=== PATIENT | female | born 1940 | race African-American/Black ===

== ENCOUNTER 2019-09-07 22:56 | Inpatient (IN) | payer MEDICARE, SELFPAY ==
--- NOTE | ~2019-09-07 | NM_ITS ---
EXAMINATION: NM GI bleeding DATE: 09/12/2019 15:03 INDICATION: Blood in stools TECHNIQUE: A 4.4 mCi Tc 99m in vitro labeled red cells administered intravenously. Scintigraphic gene ges of the abdomen were obtained through 1 hour. FINDINGS: No pattern of abnormal activity is seen in the abdomen or pelvis to suggest gastrointestina l hemorrhage. IMPRESSION: 1. No scintigraphic evidence for active gastrointestinal bleeding. Reviewed, dictated and finalized at location A.
--- NOTE | ~2019-09-07 | CT_ITS ---
EXAMINATION: CT abdomen pelvis w con INDICATION: GI bleeding TECHNIQUE: Computed tomographic images of the abdomen and pelvis were obtained after the administrati on of 100 cc of Omnipaque 350 intravenous contrast. The dose-length product (DLP) was 469.32 mGy-cm. Automated exposure control and iterative reconstruction technique were employed. COMPARISON: 03/16/2018 FINDINGS: Minimal dependent atelectasis is present in the lung bases. The heart size is normal. Cysts of the liver measure up to 2.4 cm and the left hepatic lobe. Innumerable stones are present in the n ondistended gallbladder. The spleen and pancreas are normal. There are stable bilateral adrenal rachele s, likely adenomas given the lack of significant interval change. Cysts of the kidneys measure up to 4.5 cm on the right. There is calcified atherosclerosis of the aorta and many of the other arteries. No pathologically enlarged abdominal or pelvic lymph nodes are identified. There is no free intraperi toneal gas or evidence of bowel obstruction. There is extensive colonic diverticulosis. There is high attenuation material in the ascending colon near the hepatic flexure. There is severe lumbar spondyl osis. IMPRESSION: 1. High attenuation material in the ascending colon near the hepatic flexure, likely reflecting activ e contrast extravasation given history of lower GI bleeding. Emergent surgical consultation is recomm ended. These findings and recommendations were discussed with Dr. Celestino Sullivan MD in the Emerg ency Department at 0320 hours on 09/08/2019 by the [facility]. Reviewed, dictated and finalized at location A. IMPRESSION: 1. High attenuation material in the ascending colon near the hepatic flexure, l ikely reflecting active contrast extravasation given history of lower GI bleedi ng. Emergent surgical consultation is recommended. These findings and recommend ations were discussed with Dr. Celestino Sullivan MD in the Emergency Departme nt at 0320 hours on 09/08/2019 by the [facility].
[2019-09-07 22:57] VITALS: BP 193/87; PULSE 64; RESP 16; TEMP 36.9; O2SAT 96
[2019-09-07 23:29] VITALS: BP 168/84; PULSE 57
[2019-09-07 23:30] VITALS: BP 171/86; PULSE 60
[2019-09-07 23:32] VITALS: BP 165/91; PULSE 62
[2019-09-07 23:46] LABS: Basophils Percent Auto 0.6 % (0.2-1.2); Eosinophils Absolute Auto 0.2 K/mm3 (0-0.3); Eosinophils Percent Auto 2.6 % (0-4.4); Hematocrit 41.3 % (37.0-47.0); Hemoglobin 13.8 g/dL (12.0-15.0); Immature Granulocyte Absolute 0.02 K/mm3 (0.00-0.031); Immature Granulocyte Percent A 0.3 % (0-0.5); Lymphocytes Absolute Auto 1.79 K/mm3 (0.9-3.2); Lymphocytes Percent Auto 27.9 % (18.3-44.2); Mean Corpuscular HGB Conc 33.4 g/dl (32-36); Mean Corpuscular Hemoglobin 30.7 pg (26-34); Mean Corpuscular Volume 91.8 fl (80-100); Mean Platelet Volume 10.1 fl (7.4-10.4); Monocytes Absolute Auto 0.8 K/mm3 (0.1-0.6); Monocytes Percent Auto 11.7 % (2.6-8.5); Neutrophils Absolute Auto 3.7 K/mm3 (1.3-6.7); Neutrophils Percent Auto 56.9 % (45.5-73.1); Platelet Count Result 251 k/mm3 (150-375); Red Cell Distribution Width 14.4 % (11.5-14.5); White Blood Count 6.4 K/mm3 (4.5-10.0)
[2019-09-07 23:56] LABS: Partial Thromboplastin Time 27.2 SECONDS (22.3-36.8); Prothrombin Time 13.2 Seconds (11.1-14.7)
[2019-09-07 23:59] LABS: Alanine Aminotransferase 17 U/L (4-35); Albumin Level 4.3 g/dL (3.5-5.1); Alkaline Phosphatase 62 U/L (38-126); Aspartate Amino Transferase 25 U/L (14-36); Bilirubin,Total 0.4 mg/dL (0.2-1.3); Blood Urea Nitrogen 19 mg/dL (7-17); Calcium 9.5 mg/dL (8.4-10.2); Carbon Dioxide 25 mmol/L (22-30); Chloride 105 mmol/L (98-107); Estimated CRCL calculation 49 ml/min; Estimated Glomerular Filt Rate > 60; Glucose 108 mg/dL (65-105); Potassium 3.8 mmol/L (3.4-5.0); Sodium 137 mmol/L (137-145)
[2019-09-08] VITALS (9 sets, daily range): BP systolic 106–182; BP diastolic 61–97; PULSE 57–72; RESP 14–20; TEMP 36.1–36.8; O2SAT 96–99; BMI 27.8
--- NOTE | 2019-09-08 00:02 | ED.GIBLEED ---
HPI - GI Bleed General Chief complaint: GI Bleed Stated complaint: rectal bleeding Time Seen by Provider: 09/07/19 23:30 History of Present Illness HPI Narrative: 79 yo female w/ h/o htn presents to the ED c/o GI bleed. She reports 2 bright red stools this evening. The first time she pased some normal stool and noted red on the tissue in in the toilet bowl. The next time she felt as if she was going to have a bowel movement but only passed bright red blood. She denies abdominal pain. she does report mild dizziness. She takes 325 mg aspirin daily. Related Data Home Medications Medication Instructions Recorded Confirmed amlodipine 5 mg PO DAILY 09/08/19 09/08/19 aspirin 325 mg PO DAILY 09/08/19 09/08/19 diclofenac sodium 75 mg PO BID 09/08/19 09/08/19 dicyclomine 10 mg PO TID PRN 09/08/19 09/08/19 propranolol 160 mg PO DAILY 09/08/19 09/08/19 Allergies Allergy/AdvReac Type Severity Reaction Status Date / Time codeine Allergy Unknown Unknown Verified 09/07/19 23:25 MEPERIDINE HCL Allergy Unknown Unknown Uncoded 09/07/19 23:25 SHELLFISH Allergy Unknown Unknown Uncoded 09/07/19 23:25 Review of Systems Review of Systems: All systems reviewed & are unremarkable except as noted in HPI and below Constitutional: Constitutional: Denies fever(s) and Denies weakness Cardiovascular: Cardiovascular: Denies chest pain Respiratory: Respiratory: Denies dyspnea Gastrointestinal: Gastrointestinal: Denies abdominal pain and Denies nausea Genitourinary: Genitourinary: Denies hematuria and Denies dysuria Neurologic: Reports dizziness and Denies weakness [facility] Past Medical History Medical History (Updated 09/08/19 @ 03:39 by Celestino Sullivan MD) HTN (hypertension) Social History Social History (Updated 09/08/19 @ 03:36 by Celestino Sullivan MD) Smoking packs per day: 0 Smoking cigarettes per day: 0.0 Years smoked: 50 Smoking pack-years: 0.00 Smoking status: Former smoker Tobacco type: cigarettes Second hand tobacco smoke exposure: Yes Alcohol intake: current Drinks per week: 15 Substance use: never Substance use type: does not use Gender identity (if verbalized by the patient): Female Spiritual care concerns: No Exam Const: General: healthy appearing, no acute distress and alert Orientation/consciousness: patient oriented x3 Limitations: no limitations HENMT: Head: normal to inspection Resp: Effort & Inspection: normal respiratory effort Auscultation: clear to auscultation bilaterally Cardio: Rate: regular rate Rhythm: regular rhythm GI: GI Palp: Yes Soft to palpation and No Tenderness to palpation present (GI) Skin: General skin exam: normal color Neuro: General: patient oriented x3, moves all extremities and CN's II-XI intact bilaterally Speech: normal speech Extrem: General: normal to inspection Course Vital Signs Vital signs: Vital Signs Temperature 36.9 C 09/07/19 22:57 Pulse Rate 64 09/07/19 22:57 Respiratory Rate 16 09/07/19 22:57 Blood Pressure 193/87 H 09/07/19 22:57 Pulse Oximetry 96 09/07/19 22:57 Temperature 36.9 C 09/07/19 22:57 Pulse Rate 61 09/08/19 03:08 Respiratory Rate 20 09/08/19 03:08 Blood Pressure 147/79 H 09/08/19 03:08 Pulse Oximetry 98 09/08/19 03:08 MDM - GI Bleed MDM Narrative Medical decision making narrative: Labs stable. Lower GI bleed of uncertain origin. Discussed patient with Dr. Camacho. Recommends admission to the hospitalist. He will consult. Medical Records Attestation: I reviewed the patient's medical records. Lab Data Attestation: I reviewed the patient's lab results. Result diagrams: 09/07/19 23:27 09/07/19 23:27 Labs: Lab Results 09/07/19 09/07/19 09/07/19 Range/Units 23:27 23:27 23:27 WBC 6.4 (4.5-10.0) K/mm3 RBC 4.50 (4.2-5.4) M/mm3 Hgb 13.8 (12.0-15.0) g/dL Hct 41.3 (37.0-47.0) % MCV 91.8 (80-100) fl MCH 30.7 (26
--- NOTE | 2019-09-08 03:15 | ADMGEN ---
This patient, Caro Garcia, was admitted to Medical Room 342-01. Patient/family oriented to hospital policies and general routines including ID bracelet, bed and alarms, visiting hours, pain management, procedures, bathroom and other care routines, personal items, smoking policy, room service/diet, and visiting hours. Valuables list has been completed. Information on how to activate the Rapid Response Team has been discussed. Patient/Family are encouraged to report perceived risks to care and to ask questions if they do not understand what they are told or what they should do.
[2019-09-08] MEDS: LACTATED RINGERS 1,000 ML 75 ML IV CONT ×2 (03:18→16:27)
--- NOTE | 2019-09-08 09:19 | PM.IMHP ---
H&P: HPI History of Present Illness Chief complaint: Lower GI bleed <Domenica Hardin PA-C - Last Filed: 09/08/19 10:45> Narrative: Date of admission: 09/08/2019 Date of service: 09/08/2019 Caro Garcia is a 79 year old female with a past medical history of hypertension and hemorrhoids who presented to the emergency department on 09/08/2019 with complaints bright red bleeding per rectum. She had been feeling in her usual state of until yesterday evening when she ate some ice cream cake at a birthday alliance party which she states did not agree with her. She then had some crampy abdominal discomfort, went to the bathroom and discovered bright red blood on the toilet paper and in the toilet bowl. At that time she passed a soft formed stool. Shortly thereafter she had a 2nd episode of bright red bleeding, which prompted her to seek emergency care. She has had 3 additional episodes of bleeding per rectum since presentation. Her past two bowel movements, she notes she passed several small, soft, balls of stool. She does take aspirin daily. She denies any associated abdominal pain, nausea, vomiting, fever or chills. She denies any recent weight loss, in fact believes that she might have gained some weight recently. She has never had a colonoscopy. She does have a history of hemorrhoids which do not typically bother her. She occasionally uses preparation H. She reports she has not been straining recently. She also denies recent constipation. Approximately 3 months ago, she began having some issues with diarrhea and her PCP started her on dicyclomine. She now takes this only occasionally if she develops diarrhea, which is infrequent. <Domenica Hardin PA-C - Last Filed: 09/08/19 10:45> Review of Systems Review of Systems: Narrative: A 12 point review of systems was reviewed with pertinent positives and negatives as above. She does report that she has been somewhat weak lately, especially in her legs, which she believes is due to decreased activity from being stuck at home. She denies dizziness or lightheadedness. She does endorse some dyspnea on exertion. She denies any chest pain. She denies visual changes. She denies sore throat. She endorses chronic sinus congestion and occasional dry cough. She denies numbness or tingling. She denies easy bruising or bleeding. She denies anxiety or depression. She reports that she is occasionally forgetful, but denies overt memory issues or confusion. <Domenica Hardin PA-C - Last Filed: 09/08/19 10:45> FORMERLY [facility], [facility]–1983 Past Medical History Medical History: Medical History (Updated 09/08/19 @ 13:22 by Pedro Gee MD) Abnormal CT scan, colon (~09/08/19) Acute blood loss anemia Hemorrhoids History of TIA (transient ischemic attack) HTN (hypertension) (Unknown) Spinal stenosis <Domenica Hardin PA-C - Last Filed: 09/08/19 10:45> Surgical History Surgical History: Surgical History (Updated 09/08/19 @ 09:42 by Domenica Hardin PA-C) History of cataract surgery <Domenica Hardin PA-C - Last Filed: 09/08/19 10:45> Family History Family History: Family History (Updated 09/08/19 @ 09:43 by Domenica Hardin PA-C) Mother Acute myocardial infarction Cerebrovascular accident Hypertension Father Cerebrovascular accident Hypertension Sibling Cerebrovascular accident Sibling Colon cancer Breast cancer Sibling Diabetes mellitus Prostate carcinoma Sibling Renal cancer <Domenica Hardin PA-C - Last Filed: 09/08/19 10:45> Social History Social History: Social History (Updated 09/08/19 @ 09:46 by Domenica Hardin PA-C) Social History: Ms. Garcia lives at home with her daughter. 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 She has 1 daughter and 2 sons. She designates her daughter, Susi, as her POA. She would like to be a DNR. Smoking packs per day: 0 Smoking cigarettes per day: 0.0 Years smoked: 50 Smokin
[2019-09-08 09:47] LABS: Hematocrit 30.5 % (37.0-47.0); Hemoglobin 10.1 g/dL (12.0-15.0); Mean Corpuscular HGB Conc 33.1 g/dl (32-36); Mean Corpuscular Hemoglobin 30.3 pg (26-34); Mean Corpuscular Volume 91.6 fl (80-100); Mean Platelet Volume 9.6 fl (7.4-10.4); Platelet Count Result 205 k/mm3 (150-375); Red Blood Count 3.33 M/mm3 (4.2-5.4); Red Cell Distribution Width 14.6 % (11.5-14.5); White Blood Count 5.7 K/mm3 (4.5-10.0)
[2019-09-08 10:01] LABS: Alanine Aminotransferase 14 U/L (4-35); Albumin Level 3.3 g/dL (3.5-5.1); Alkaline Phosphatase 52 U/L (38-126); Aspartate Amino Transferase 18 U/L (14-36); Bilirubin,Total 0.4 mg/dL (0.2-1.3); Blood Urea Nitrogen 15 mg/dL (7-17); Calcium 8.5 mg/dL (8.4-10.2); Carbon Dioxide 24 mmol/L (22-30); Chloride 108 mmol/L (98-107); Estimated CRCL calculation 49 ml/min; Estimated Glomerular Filt Rate > 60; Glucose 124 mg/dL (65-105); Potassium 3.9 mmol/L (3.4-5.0); Sodium 137 mmol/L (137-145)
[2019-09-08] MEDS: AMLODIPINE BESYLATE 5 MG TABLET PO (10:36)
[2019-09-08] MEDS: PANTOPRAZOLE SODIUM IV 40 MG VIAL IV PUSH (10:37)
--- NOTE | 2019-09-08 10:44 | PM.CNGS ---
Assessment and Plan Assessment and plan (1) Acute lower GI bleeding: Onset Date: ~09/07/19 Code(s): K92.2 - Gastrointestinal hemorrhage, unspecified Status: Acute Assessment and Plan: GI consultation has already been obtained. If possible bowel prep to be followed by a colonoscopy in an attempt to identify site of bleeding. If there are signs of continuing active bleeding I would recommend considering a nuclear medicine red cell tag scan to help identify which side of the colon this is on but right now it appears to be on the right side. also bleeding seems to have slowed down as the patient has not had a bowel movement since 10:00 a.m. this morning. Will discuss with patient that if she comes to open surgery and requires a right hemicolectomy it may be fuentes to go ahead electively remove the gallbladder at the same time in order to stay out of trouble postoperatively with a perioperative episode of cholelithiasis / cholecystitis. ( non inflamed gallbladder with stones in it seen on CT). (2) Abnormal CT scan, colon: Onset Date: ~09/08/19 Code(s): R93.3 - Abnormal findings on diagnostic imaging of other parts of digestive tract Status: Acute Assessment and Plan: see report will await GI evaluation and possible colonoscopy. (3) Acute blood loss anemia: Code(s): D62 - Acute posthemorrhagic anemia Status: Acute Assessment and Plan: Hemoglobin from 13 down to 10. Continue to monitor with Q 6 hours H&Hs. (4) HTN (hypertension): Onset Date: Unknown Code(s): I10 - Essential (primary) hypertension Status: Acute Assessment and Plan: Rx as per primary service. History of Present Illness Consult details Consult date: 09/08/19 Reason for consult: other (Lower GI bleed) Requesting physician: Domenica Hardin PA-C Narrative: H&P: HPI History of Present Illness Chief complaint: Lower GI bleed Narrative: Date of admission: 09/08/2019 Date of service: 09/08/2019 Caro Garcia is a 79 year old female with a past medical history of hypertension and hemorrhoids who presented to the emergency department in the very draw furnace tender of 09/08/2019 with complaints of bright red bleeding per rectum. She had been feeling ok and in her usual state health until yesterday evening when she ate some ice cream cake at a birthday green party which she states did not agree with her. She then had some crampy abdominal discomfort, and went to the bathroom and discovered bright red blood on the toilet paper and in the toilet bowl after her BM. At that time she passed a soft formed stool. Shortly thereafter she had a 2nd episode of bright red bleeding, which prompted her to seek emergency care. She has had 3 additional episodes of bleeding per rectum since being admited to the floor. Her past two bowel movements, she notes that she passed several small, soft, balls of stool along with the blood. She does take aspirin daily and Diflocnac. She denies any associated abdominal pain, nausea, vomiting, fever or chills. She denies any recent weight loss, in fact believes that she might have gained some weight recently. She has never had a colonoscopy. She does have a history of hemorrhoids which do not typically bother her. She occasionally uses preparation H. She reports she has not been straining recently. She also denies recent constipation. Approximately 3 months ago, she began having some issues with diarrhea and her PCP started her on dicyclomine. She now takes this only occasionally if she develops diarrhea, which is infrequent. Her H&H was stable at presentation. Review of Systems Constitutional: Constitutional: Reports as per HPI and Denies headache(s) Eyes: Eyes: Denies loss of vision and Denies eye pain ENT: Reports Normal hearing present, Denies change in voice, Denies dizziness and Denies headache(s) Cardiovascular: Cardiovascular: Denies ches
--- NOTE | 2019-09-08 12:51 | WPDGICN ---
Assessment and Plan Assessment and plan (1) Acute lower GI bleeding: Code(s): K92.2 - Gastrointestinal hemorrhage, unspecified Status: Acute Assessment and Plan: admitted to the hospital, continue to trend hb differential diagnosis include diverticular bleeding, ischemic colitis (will get lactic acid- also abnormal CT scan with accumulation of contrast in ascending colon- surgery to assess)- abdominal exam is benign now. (2) Acute blood loss anemia: Code(s): D62 - Acute posthemorrhagic anemia Status: Acute Assessment and Plan: noted drop in hb, continue to monitor eventually will need colonoscopy (3) HTN (hypertension): Code(s): I10 - Essential (primary) hypertension Status: Acute (4) Abnormal CT scan, colon: Code(s): R93.3 - Abnormal findings on diagnostic imaging of other parts of digestive tract Status: Acute GI Consult Note Consult date/time: 09/08/19 12:51 Reason for consult: blood in stools HPI: Caro Garcia is a 79 year old female with history of hypertension, hemorrhoids and new onset of blood in stool after having a bowel movement last night after dinner, then had another episode with large amount and cramping in lower abdomen therefore she came to ER and was admitted to the hospital. Had another 3 episodes since admission. Few days ago had nausea without vomiting, no fever or chills, no sick contacts. CT scan showed high attenuation material in the ascending colon near the hepatic flexure and surgery team will see. She denies any abdominal pain in fact she is quite comfortable and hungry. Hb was 13 and repeat 10. Never had colonoscopy. Normal Co2 (no metabolic acidosis), normal WBC and afebrile. Denies abdominal surgeries and overall healthy. Review of Systems Constitutional: Constitutional: Denies headache(s) and Denies weakness Eyes: Eyes: Denies blurry vision ENT: Reports Normal hearing present, Denies headache(s) and Denies neck pain Cardiovascular: Cardiovascular: Denies chest pain and Denies dyspnea Respiratory: Respiratory: Denies dyspnea Gastrointestinal: Gastrointestinal: Reports no additional gastrointestinal complaints Genitourinary: Genitourinary: Denies dysuria Musculoskeletal: Musculoskeletal: Denies neck pain Integumentary/Breasts: Skin/Breast: Denies dry skin Neurologic: Reports Normal hearing present, Denies headache(s) and Denies weakness Psychiatric: Psychiatric: Denies anxiety Endocrine: Endocrine: Denies change in body appearance Hematologic/Lymphatic: Hematologic/Lymphatic: Denies easy bleeding Allergic/Immunologic: Allergic/Immunologic: Denies urticaria PMFSH Past Medical History Medical History (Updated 09/08/19 @ 13:00 by Michi Nobles MD) Abnormal CT scan, colon Acute blood loss anemia Hemorrhoids History of TIA (transient ischemic attack) HTN (hypertension) Spinal stenosis Surgical History Surgical History (Updated 09/08/19 @ 09:42 by Domenica Hardin PA-C) History of cataract surgery Family History Family History (Updated 09/08/19 @ 09:43 by Domenica Hardin PA-C) Mother Acute myocardial infarction Cerebrovascular accident Hypertension Father Cerebrovascular accident Hypertension Sibling Cerebrovascular accident Sibling Colon cancer Breast cancer Sibling Diabetes mellitus Prostate carcinoma Sibling Renal cancer Social History Social History (Updated 09/08/19 @ 09:46 by Domenica aHrdin PA-C) Social History: Ms. Garcia lives at home with her daughter. 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 She has 1 daughter and 2 sons. She designates her daughter, Susi, as her POA. She would like to be a DNR. Smoking packs per day: 0 Smoking cigarettes per day: 0.0 Years smoked: 50 Smoking pack-years: 0.00 Smoking status: Former smoker Tobacco type: cigarettes Second hand tobacco smoke exposure: Yes Alcohol intake: current
--- NOTE | 2019-09-08 15:17 | PC.NURSE ---
Patient with 100mls mixed urine with dark red blood. Continues alert and oriented. To continue to monitor patient.
[2019-09-08 17:12] LABS: Hematocrit 31.3 % (37.0-47.0); Hemoglobin 10.2 g/dL (12.0-15.0)
[2019-09-09] VITALS (9 sets, daily range): BP systolic 113–167; BP diastolic 56–80; PULSE 56–89; RESP 12–18; TEMP 36.4–36.8; O2SAT 97–100
[2019-09-09] MEDS: LACTATED RINGERS 1,000 ML 75 ML IV CONT ×2 (05:06→18:28)
[2019-09-09] MEDS: AMLODIPINE BESYLATE 5 MG TABLET PO (09:14)
[2019-09-09] MEDS: PANTOPRAZOLE SODIUM IV 40 MG VIAL IV PUSH (09:14)
--- NOTE | 2019-09-09 11:32 | WPDGIPROGNO ---
Progress Note: A&P Assessment and Plan (1) Acute lower GI bleeding: Onset Date: ~09/07/19 Code(s): K92.2 - Gastrointestinal hemorrhage, unspecified Status: Acute Assessment and Plan: will proceed with colonoscopy tomorrow differential diagnosis diverticular bleed, colitis, even malignancy (never had a colonoscopy) will order bowel prep and npo after midnight (2) Acute blood loss anemia: Code(s): D62 - Acute posthemorrhagic anemia Status: Acute Assessment and Plan: stable at 10 now (3) Abnormal CT scan, colon: Onset Date: ~09/08/19 Code(s): R93.3 - Abnormal findings on diagnostic imaging of other parts of digestive tract Status: Acute Subjective Date/time seen: 09/09/19 11:32 Interval history: had two more episodes of rectal bleeding today with low abdominal cramping just before defecation. Now she feels ok Review of Systems Review of Systems: All systems reviewed & are unremarkable except as noted in HPI and below Exam Const: General: comfortable and no acute distress HENMT: General nose exam: Normal nares present Eyes: General: appearance normal, both eyes and all related structures Neck: Neck: no JVD Resp: Auscultation: clear to auscultation bilaterally Cardio: Rate: regular rate Rhythm: regular rhythm GI: Inspection: non-distended GI Palp: Yes Soft to palpation, No Tenderness to palpation present (GI) and No Guarding due to palpation present (GI) Auscultation: normal bowel sounds Skin: General skin exam: normal color Neuro: General: gait normal Speech: normal speech Extrem: General: normal to inspection Psych: Mental Status: mental status grossly normal Objective Data Vital Signs Vital Signs: Vital Signs - 24 hr 09/08/19 14:00 09/08/19 19:43 09/09/19 06:00 Temperature 97.1 F L 98.2 F 98.2 F Pulse Rate 64 61 67 Respiratory Rate 18 14 12 Blood Pressure 106/72 127/61 113/80 Pulse Oximetry 98 96 98 09/09/19 09:13 Temperature Pulse Rate 89 Respiratory Rate Blood Pressure Pulse Oximetry Intake/Output Intake/Output: Intake & Output 09/06/19 09/07/19 09/08/19 09/09/19 23:59 23:59 23:59 23:59 Intake Total 1350 1660 Output Total 350 800 Balance 1000 860 Meds/Results Medications: Active Medications Generic Name Dose Route Start Last Admin Trade Name Freq PRN Reason Stop Dose Admin Acetaminophen 650 mg 09/08/19 10:00 Tylenol Tablet PO Q4H PRN Mild pain 1-3, Fever Amlodipine Besylate 5 mg 09/08/19 09:00 09/09/19 09:14 Norvasc PO 5 mg DAILY SALINA Administration Lactated Ringer's 1,000 mls @ 75 mls/hr 09/08/19 02:25 09/09/19 05:06 Lr - Lactated Ringers Iv IV CONT 75 mls/hr .[id number] SALINA Administration Pantoprazole Sodium 40 mg 09/08/19 09:00 09/09/19 09:14 Protonix Iv IV PUSH 40 mg QAM SALINA Administration Propranolol HCl 160 mg 09/08/19 09:00 09/09/19 09:13 Inderal La PO 10/09/19 09:01 160 mg DAILY SALINA Administration Radiology Results: ITS Impressions Abdomen/Pelvis CT 09/08/19 08:41 IMPRESSION: 1. High attenuation material in the ascending colon near the hepatic flexure, likely reflecting active contrast extravasation given history of lower GI bleeding. Emergent surgical consultation is recommended. These findings and recommendations were discussed with Dr. Celestino Sullivan MD in the Emergency Department at 0320 hours on 09/08/2019 by the [facility] Radiologist. Labs Labs: Laboratory Results - last 24 hr 09/08/19 09/08/19 13:06 17:02 Hgb 10.2 L Hct 31.3 L Lactic Acid 1.0
--- NOTE | 2019-09-09 11:36 | PC.NURSE ---
0735 patient with 50 mls of red urine/stool mixture 50 ml.
--- NOTE | 2019-09-09 13:00 | PM.IMPN ---
Progress Note: A&P Assessment and Plan (1) Acute lower GI bleeding: Onset Date: ~09/07/19 <Domenica Hardin LOREN-C - Last Filed: 09/09/19 13:21> Code(s): K92.2 - Gastrointestinal hemorrhage, unspecified <Domenica Hradin PA-C - Last Filed: 09/09/19 13:21> Status: Acute <LOREN Tracy-C - Last Filed: 09/09/19 13:21> Assessment and Plan: Patient notes 3 episodes of rectal bleeding today, passing a small amount of darker blood with clots Her CT abdomen and pelvis revealed high attenuation material in the ascending colon near the hepatic flexure, likely reflecting active contrast extravasation. She denies abdominal pain or rectal pain. She is tolerating full liquid diet. Gastroenterology and General surgery have been consulted and their input is greatly appreciated She will undergo colonoscopy tomorrow. Continue gentle IV fluids Continue full liquid diet. She will be NPO after midnight Measure all voids to monitor blood loss. <Domenica Torreslaisha LOREN-C - Last Filed: 09/09/19 13:21> (2) Anemia: Code(s): D64.9 - Anemia, unspecified <Domenica Torreslaisha PA-C - Last Filed: 09/09/19 13:21> Status: Acute <Domenica Hardin LOREN-C - Last Filed: 09/09/19 13:21> Assessment and Plan: Normocytic. At presentation H&H was stable. Hgb dropped from 13.1 to 10.1 yesterday secondary to acute blood loss. H&H remained stable yesterday. Labs are delayed today and H&H is not yet for today. Patient is asymptomatic and vitals are stable Continue to monitor H&H Q6H and transfuse as needed <Domenica VillegasAlexia Brianlaisha LOREN-C - Last Filed: 09/09/19 13:21> (3) HTN (hypertension): Onset Date: Unknown <Domenica Torreslaisha PA-C - Last Filed: 09/09/19 13:21> Code(s): I10 - Essential (primary) hypertension <Domenica Torreslaisha PA-C - Last Filed: 09/09/19 13:21> Status: Acute <Domenica Hardin PA-C - Last Filed: 09/09/19 13:21> Assessment and Plan: Blood pressures were elevated at presentation but have improved today.. Blood pressure this morning was 113/80. Continue amlodipine and propranolol Continue to monitor blood pressures closely <Domenica Hardin PA-C - Last Filed: 09/09/19 13:21> Subjective Date/time seen: 09/09/19 13:00 <Domenica Hardin PA-C - Last Filed: 09/09/19 13:21> Interval history: Date of service: 09/09/2019 She reports she is feeling well today. She notes that she had 3 bloody stools this morning. She states that the blood is now somewhat dark and she is noting small clots. She says she is passing a small amount of blood. She denies any abdominal pain. She does note that she has abdominal cramping just before she is about to have a bowel movement. She denies nausea or vomiting. She denies weakness, fatigue, shortness of breath, dizziness, lightheadedness, or palpitations. She denies chest pain. She is tolerating her liquid diet well. She reports being somewhat nervous for her colonoscopy tomorrow. She slept well last night. She has no additional concerns. <Domenica Hardin PA-C - Last Filed: 09/09/19 13:21> Review of Systems Review of Systems: Narrative: A 12 point review of systems was reviewed with pertinent positives and negatives as per HPI. <Domenica Hardin PA-C - Last Filed: 09/09/19 13:21> Exam Narrative: Exam Narrative: Ms. Garcia is examined alone today. She is a well-nourished 79-year-old female who appears slightly younger than stated age. She is resting in bed comfortably and is in no acute respiratory distress. HR 67, BP 113/80, RR 12, T 98.2?, 98% on room air Neuro: awake, alert and oriented x4, speech clear, no focal neuro deficits noted HEENMT: normocephalic, atraumatic, EOMI, PERRL, sclerae anicteric, moist oral mucosa, normal oropharynx, tongue midline Neck: supple, no lymphadenopathy Respiratory: clear to auscultation bilaterally
[2019-09-09] MEDS: PEG (High)/E-LYTE SOLN 4,000 ML BTL 4000 ML PO (16:28)
[2019-09-09] MEDS: BISACODYL 5 MG TABLET EC 20 MG PO (16:28)
[2019-09-09 16:36] LABS: Hematocrit 25.5 % (37.0-47.0); Hemoglobin 8.3 g/dL (12.0-15.0)
[2019-09-09 16:37] LABS: Basophils Percent Auto 0.6 % (0.2-1.2); Eosinophils Absolute Auto 0.2 K/mm3 (0-0.3); Eosinophils Percent Auto 2.4 % (0-4.4); Hematocrit 25.8 % (37.0-47.0); Hemoglobin 8.3 g/dL (12.0-15.0); Immature Granulocyte Absolute 0.04 K/mm3 (0.00-0.031); Immature Granulocyte Percent A 0.6 % (0-0.5); Lymphocytes Absolute Auto 1.88 K/mm3 (0.9-3.2); Lymphocytes Percent Auto 26.6 % (18.3-44.2); Mean Corpuscular HGB Conc 32.2 g/dl (32-36); Mean Corpuscular Hemoglobin 30.3 pg (26-34); Mean Corpuscular Volume 94.2 fl (80-100); Mean Platelet Volume 10.3 fl (7.4-10.4); Monocytes Absolute Auto 0.6 K/mm3 (0.1-0.6); Monocytes Percent Auto 8.3 % (2.6-8.5); Neutrophils Absolute Auto 4.4 K/mm3 (1.3-6.7); Neutrophils Percent Auto 61.5 % (45.5-73.1); Platelet Count Result 204 k/mm3 (150-375); Red Blood Count 2.74 M/mm3 (4.2-5.4); Red Cell Distribution Width 14.6 % (11.5-14.5); White Blood Count 7.1 K/mm3 (4.5-10.0)
--- NOTE | 2019-09-09 16:38 | PC.NURSE ---
Emptied 50 mls dark red stool/urine mixture into toilet.
[2019-09-09 16:49] LABS: Alanine Aminotransferase 13 U/L (4-35); Albumin Level 3.4 g/dL (3.5-5.1); Alkaline Phosphatase 47 U/L (38-126); Aspartate Amino Transferase 20 U/L (14-36); Bilirubin,Total 0.3 mg/dL (0.2-1.3); Blood Urea Nitrogen 12 mg/dL (7-17); Calcium 8.2 mg/dL (8.4-10.2); Carbon Dioxide 27 mmol/L (22-30); Chloride 105 mmol/L (98-107); Estimated CRCL calculation 57 ml/min; Estimated Glomerular Filt Rate > 60; Glucose 89 mg/dL (65-105); Potassium 3.4 mmol/L (3.4-5.0); Sodium 136 mmol/L (137-145)
--- NOTE | 2019-09-09 18:22 | ECG_ITS ---
Measurements Intervals [place] Rate: 62 P: 25 NV: 146 QRS: 45 QRSD: 103 T: 93 QT: 355 QTc: 361 Interpretive Statements SINUS RHYTHM NONSPECIFIC ST & T-WAVE ABNORMALITY- DIFFUSE LEADS BASELINE ARTIFACT- I, III, AVR, AVL, AVF, V3-V4 BORDERLINE ECG Electronically Signed On 09-10-2019 7:03:47 CDT by Cruz Dahl D.O.
--- NOTE | 2019-09-09 19:30 | PC.NURSE ---
1818 upon arrival to have patient to have colonoscopy consent signed patient voiced that she has mid chest tightening after racing to the bathroom and back to bed. Vital signs, blood pressure 167/68, pulse 64, respirations 14, temperature 97.9 oxygenation saturation 100 percent on room air. Notified Dr. Zapata of all as stated above. He voiced to get a stat EKG and he will come see the patient. At 182 patient voiced that the chest tightening is easing up. 1832 patient voiced the mid chest tightening is gone. Upon Dr. Salazar arrival to the unit I handed him the EKG paperwork.
--- NOTE | 2019-09-09 20:20 | PC.NURSE ---
Report called to Silvia from IMU. Will gather patient belongings and transfer pt to Rm 200.
[2019-09-09 20:33] LABS: Troponin I 0.047 ng/mL (0.000-0.034)
--- NOTE | 2019-09-09 20:42 | PC.NURSE ---
This patient, Caro Garcia, was transferred to [IMU 200 ] on 09/09/19 at 2037. Personal belongings sent with patient. Belongings list checked and signed with receiving [[facility] ]. Report given to [ Silvia]. Appropriate documentation sent with patient.
--- NOTE | 2019-09-09 21:24 | PC.NURSE ---
Transferred from 342 to 200 09/09/2019 at 2030. Report recieved from Yoko
--- NOTE | 2019-09-09 21:57 | PM.PNGS ---
Progress Note: A&P Assessment and Plan (1) Acute lower GI bleeding: Onset Date: ~09/07/19 Code(s): K92.2 - Gastrointestinal hemorrhage, unspecified Status: Acute Assessment and Plan: appears this patient has stopped bleeding. H&H is stable for the last 12-16 hours Agree with possible colonoscopy tomorrow. Hopefully she will tolerate her bowel prep. Possibilities include diverticular bleed versus tumor or polyp. (2) Anemia: Onset Date: Unknown Code(s): D64.9 - Anemia, unspecified Status: Acute Assessment and Plan: Continue to monitor. Have blood type and cross in case patient goes below 7.0. (3) Abnormal CT scan, colon: Onset Date: ~09/08/19 Code(s): R93.3 - Abnormal findings on diagnostic imaging of other parts of digestive tract Status: Acute Assessment and Plan: Seen on admission Awake colonoscopy results. Additional Plan Continue daily CBC in follow-up of possible colon bleed. Await results of colonoscopy tomorrow. Consider early transfusion and nuclear medicine red cells tag scan if patient starts to bleed rapidly. Subjective Subjective Date/Time Seen: 09/09/19 21:57 Interval history: Pt reports she is feeling well today. She notes that she had 3 (dark) bloody stools this morning. She states that she is noting small clots. She says she is passing a small amount of blood. She denies any abdominal pain. She does note that she has abdominal cramping just before she is about to have a bowel movement. She denies nausea or vomiting. She denies weakness, fatigue, shortness of breath, dizziness, lightheadedness, or palpitations. She denies chest pain. She is tolerating her liquid diet well. She reports being somewhat nervous for her colonoscopy tomorrow. She slept well last night. She has no additional concerns. Review of Systems Constitutional: Constitutional: Reports no additional constitutional complaints ENT: Reports other (Mucous Membranes moist.) Cardiovascular: Cardiovascular: Denies dyspnea Respiratory: Respiratory: Denies pain on inspiration and Denies dyspnea Musculoskeletal: Musculoskeletal: Reports other (No calf swelling or edema) Integumentary/Breasts: Skin/Breast: Reports system reviewed and no additional complaints, except as docu Exam Const: General: cooperative, no acute distress, alert and awake Orientation/consciousness: patient oriented x3 HENMT: Mouth: Yes moist mucous membranes Neck: Neck: normal visual inspection Chest: Chest palpation & inspection: normal inspection of the chest Resp: Effort & Inspection: normal respiratory effort Auscultation: clear to auscultation bilaterally Cardio: Jugular venous distension: no JVD Rate: regular rate Rhythm: regular rhythm GI: GI Palp: No abdominal tenderness Percussion: Yes normal to percussion Auscultation: normal bowel sounds Rectal Exam: deferred Neuro: General: patient oriented x3 and moves all extremities Speech: normal speech Extrem: General: normal exam except as noted Psych: Mental Status: mental status grossly normal Speech and movement: Normal speech and movement present Affect: normal affect Thought content: Yes Normal thought content present Objective Data Vital Signs Vital Signs: Vital Signs - 24 hr 09/09/19 06:00 09/09/19 08:00 09/09/19 09:13 Temperature 36.8 C Pulse Rate 67 89 89 Respiratory Rate 12 12 Blood Pressure 113/80 Pulse Oximetry 98 98 09/09/19 14:00 09/09/19 18:24 09/09/19 20:05 Temperature 36.4 C 36.6 C 36.6 C Pulse Rate 56 L 64 65 Respiratory Rate 14 14 16 Blood Pressure 120/56 L 167/68 H 135/66 Pulse Oximetry 97 100 99 09/09/19 20:30 Temperature 36.8 C Pulse Rate 64 Respiratory Rate 18 Blood Pressure 113/66 Pulse Oximetry 98 Intake/Output Intake/Output: Intake & Output 09/06/19 09/07/19 09/08/19 09/09/19 23:59 23:59 23:59 23:59 Intake Total 1350 3510 Output Total 3
[2019-09-10] VITALS (27 sets, daily range): BP systolic 100–141; BP diastolic 51–85; PULSE 54–89; RESP 16–26; TEMP 35.9–36.7; O2SAT 92–100
[2019-09-10 03:17] LABS: Troponin I 0.035 ng/mL (0.000-0.034)
[2019-09-10 05:00] LABS: Basophils Percent Auto 0.2 % (0.2-1.2); Eosinophils Absolute Auto 0.2 K/mm3 (0-0.3); Eosinophils Percent Auto 3.5 % (0-4.4); Immature Granulocyte Absolute 0.03 K/mm3 (0.00-0.031); Immature Granulocyte Percent A 0.5 % (0-0.5); Lymphocytes Absolute Auto 1.47 K/mm3 (0.9-3.2); Lymphocytes Percent Auto 25.7 % (18.3-44.2); Mean Corpuscular HGB Conc 33.2 g/dl (32-36); Mean Corpuscular Hemoglobin 30.4 pg (26-34); Mean Corpuscular Volume 91.6 fl (80-100); Mean Platelet Volume 9.6 fl (7.4-10.4); Monocytes Absolute Auto 0.5 K/mm3 (0.1-0.6); Monocytes Percent Auto 9.1 % (2.6-8.5); Neutrophils Absolute Auto 3.5 K/mm3 (1.3-6.7); Platelet Count Result 163 k/mm3 (150-375); Red Blood Count 2.14 M/mm3 (4.2-5.4); Red Cell Distribution Width 14.4 % (11.5-14.5); White Blood Count 5.7 K/mm3 (4.5-10.0)
[2019-09-10 05:19] LABS: Hemoglobin 6.5 g/dL (12.0-15.0)
[2019-09-10 05:20] LABS: Hematocrit 19.6 % (37.0-47.0)
[2019-09-10] MEDS: MAGNESIUM CITRATE 300 ML BTL PO (05:24)
[2019-09-10 05:41] LABS: Alanine Aminotransferase 11 U/L (4-35); Albumin Level 2.7 g/dL (3.5-5.1); Alkaline Phosphatase 38 U/L (38-126); Aspartate Amino Transferase 17 U/L (14-36); Bilirubin,Total 0.1 mg/dL (0.2-1.3); Blood Urea Nitrogen 6 mg/dL (7-17); Calcium 7.6 mg/dL (8.4-10.2); Carbon Dioxide 28 mmol/L (22-30); Chloride 105 mmol/L (98-107); Estimated CRCL calculation 68 ml/min; Estimated Glomerular Filt Rate > 60; Glucose 118 mg/dL (65-105); Potassium 2.9 mmol/L (3.4-5.0); Sodium 135 mmol/L (137-145)
[2019-09-10] MEDS: PANTOPRAZOLE SODIUM IV 40 MG VIAL IV PUSH (07:49)
[2019-09-10] MEDS: AMLODIPINE BESYLATE 5 MG TABLET PO (07:49)
--- NOTE | 2019-09-10 08:00 | ECG_ITS ---
Measurements Intervals [place] Rate: 66 P: 42 MI: 149 QRS: 55 QRSD: 112 T: 122 QT: 391 QTc: 410 Interpretive Statements SINUS RHYTHM INTRAVENTRICULAR CONDUCTION DELAY ST-T WAVE ABNORMALITY IN LATERAL LEADS- CONSIDER ISCHEMIA BASELINE ARTIFACT- V4-V5 ABNORMAL ECG Electronically Signed On 09-10-2019 9:57:51 CDT by Cruz Dahl D.O.
--- NOTE | 2019-09-10 09:24 | PM.IMPN ---
Progress Note: A&P Assessment and Plan (1) Acute lower GI bleeding: Onset Date: ~09/07/19 Code(s): K92.2 - Gastrointestinal hemorrhage, unspecified Status: Acute Assessment and Plan: She continues to pass dark red blood per rectum with small clots. Her CT abdomen and pelvis revealed high attenuation material in the ascending colon near the hepatic flexure, likely reflecting active contrast extravasation. She denies abdominal pain or rectal pain. She was tolerating full liquid diet but is now NPO. Gastroenterology and General surgery have been consulted and their input is greatly appreciated EGD and colonoscopy this afternoon Continue to measure all voids to monitor blood loss. (2) Anemia: Onset Date: Unknown Qualifiers: Other causes of anemia: acute posthemorrhagic Code(s): D64.9 - Anemia, unspecified Status: Acute Assessment and Plan: Normocytic. At presentation H&H was stable. Hgb has declined and dropped from 8.3 to 6.5 early this morning. She was to be monitored q6H, however there was a delay in labs yesterday. Her vitals have remained stable. She has been transfused 2 units Continue to monitor H&H q6H Monitor vitals closely (3) HTN (hypertension): Onset Date: Unknown Code(s): I10 - Essential (primary) hypertension Status: Acute Assessment and Plan: Blood pressures were reviewed and acceptable. Elevated initially on presentation. Blood pressure this morning was 117/73. She did have two low readings earlier this morning, most likely secondary to hypovolemia from blood loss. Continue amlodipine and propranolol for now. Will need to hold antihypertensives if blood pressures remain on low end. Continue to monitor blood pressures closely. (4) Hypokalemia: Code(s): E87.6 - Hypokalemia Status: Acute Assessment and Plan: Potassium today is 2.9. She has been given IV potassium replacement. Recheck potassium this afternoon. (5) Chest pain: Code(s): R07.9 - Chest pain, unspecified Status: Acute Assessment and Plan: Patient had an episode of chest pain with exertion yesterday evening at approximately 7:00 pm that resolved with rest. EKG demonstrated T-wave inversion. Her troponin was elevated at 0.047, 0.040 and 0.035. Her pain has resolved. She does have risk factors for cardiac disease given her age, family history, HTN, and history of TIA, but she has no history of CAD. Cardiology has been consulted and their recommendations are appreciated Her aspirin has been held given her GI bleed. Continue to hold until further information is obtained from colonoscopy Echo has been ordered. Await results Subjective Date/time seen: 09/10/19 09:24 Interval history: Date of service: 09/10/2019 Ms. Garcia reports she is feeling well today. She did have an episode of chest pain last night while returning from the bathroom. Her pain was substernal without radiation, brought on by activity, not reproducible. She did not have any additional diaphoresis, shortness of breath, palpitations, dizziness, lightheadedness, fatigue, or anxiety. She reports this morning she might have had another episode of discomfort or she thinks that she might have dreams of this episode. At this time, she reports she is completely asymptomatic. She feels in her usual state of health. She denies any shortness of breath, chest pain, cough, orthopnea, dyspnea on exertion, or palpitations. She reports she had 2 episodes of rectal bleeding this morning. Her blood is dark and with small clots of blood. Her hemoglobin dropped to 6.5, but she reports she is relatively asymptomatic from this standpoint. She has no additional concerns. Review of Systems Review of Systems: Narrative: A 12 point review of systems was reviewed with pertinent positives and negatives as per HPI. Exam Narrative: Exam N
--- NOTE | 2019-09-10 10:00 | ECHO_ITS ---
Patient Info Name: Caro Garcia Age: 79 years : 1940 Gender: Female Ht: 61 in Wt: 150 lbs BSA: 1.73 m2 HR: 60 bpm BP: 104 / 51 mmHg Heart Rhythm: Sinus Rhythm Technical Quality: Good Exam Date: 09/10/2019 10:49 AM Exam Location: [facility] Patient Status: Inpatient Admit Date: 09/09/2019 Staff Ordering Physician: Homer Salazar MD Pododermatologist: Oscar Zhou RDCS Attending Provider: Domenica Hardin PA-C Exam Type: CA echo doppler color flow Study Info Indications R07.9 - Chest pain, unspecified Complete two-dimensional, color flow and Doppler transthoracic echocardiogram is performed. Strain analysis performed. History/Risk Factors Chest pain, anemia, HTN, SOB. Summary 1. Left ventricular systolic function is normal, estimated at 65-70%. 2. There is mildly increased left ventricular wall thickness. 3. The left ventricular diastolic function is grade I diastolic dysfunction. 4. Global longitudinal strain is normal at -23 %. 5. Left atrial chamber dimension is mildly enlarged. 6. There is no aortic valve stenosis. 7. There is mild mitral valve regurgitation. 8. There is trace tricuspid valve regurgitation. 9. No pulmonary hypertension, estimated pulmonary arterial systolic pressure is 25 mmHg. Left Ventricle Left ventricular chamber dimension is normal. Left ventricular systolic function is normal, estimated at 65-70%. There is mildly increased left ventricular wall thickness. The left ventricular diastolic function is grade I diastolic dysfunction. Global longitudinal strain is normal at -23 %. Right Ventricle Right ventricular chamber dimension is normal. Right ventricular systolic function is normal. Left Atria Left atrial chamber dimension is mildly enlarged. Right Atria Right atrial chamber dimension is mildly enlarged. Aortic Valve The aortic valve is trileaflet. There is mild aortic valve sclerosis. There is no aortic valve stenosis. There is no aortic valve regurgitation. Pulmonic Valve The pulmonic valve is normal. There is mild pulmonic regurgitation. Mitral Valve The mitral valve has normal leaflets and thickened leaflets. There is mild mitral valve regurgitation. The mitral valve annulus is mildly calcified. Tricuspid Valve The tricuspid valve leaflets are normal. There is trace tricuspid valve regurgitation. No pulmonary hypertension, estimated pulmonary arterial systolic pressure is 25 mmHg. Pericardium/Pleural The pericardium appears epicardial fat pad. There is no pericardial effusion. Inferior Vena Cava Normal inferior vena cava with >50% collapse upon inspiration consistent with normal right atrial pressure, 5 mmHg. Aorta The aortic root size at the sinus of Valsalva is normal. Left Ventricular Outflow Tract Name Value Normal LVOT 2D LVOT Diameter 2.0 cm LVOT Doppler LVOT Peak Gradient 7 mmHg LVOT Mean Gradient 3 mmHg LVOT VTI 28 cm LVOT VTI/AV VTI Ratio 0.8 LVOT Stroke Vo
[2019-09-10] MEDS: SODIUM CHLORIDE 0.9% IV 250 ML 50 ML (10:36)
--- NOTE | 2019-09-10 12:32 | PM.CNCAR ---
Assessment and Plan Assessment and plan (1) Chest pain: Code(s): R07.9 - Chest pain, unspecified Status: Acute Assessment and Plan: Isolated CP concerning for angina, associated with exertion resolved spontaneously without recurrence. Mildly elevated troponin with fairly flat curve slight downward trend most likely secondary to demand ischemia from severe anemia and GI bleed as opposed to new myocardial ischemia relating to her chest pain. I suspected chest pain was related to demand ischemia. She has no known history of CAD but cannot exclude. Twelve lead EKG suggestive of myocardial ischemia although patient is completely asymptomatic at this time. antiplatelet and anticoagulant therapy not advisable given anemia due to blood loss and transfusion. Explained my concern regarding her symptoms and possibility of underlying CAD although she denied any preceding symptoms prior to hospitalization at any time or prior diagnosis. Will check troponin in a.m. with EKG and if she remains stable and asymptomatic in this regard plan for outpatient ischemic evaluation. Invasive angiography not advised currently. Patient is asymptomatic and hemodynamically stable at this time. 2D echocardiogram has been ordered. Will review when available. Further recommendations to follow. (2) Elevated troponin I level: Code(s): R79.89 - Other specified abnormal findings of blood chemistry Status: Acute Assessment and Plan: As above, most likely type 2 infarct not acute coronary syndrome and/or plaque rupture. However, I suspect she has underlying CAD given risk factors so anticipate ischemic evaluation most likely as an outpatient. Will check troponin and EKG in a.m.. Provided patient remains asymptomatic and hemodynamically stable will continue with conservative observation/management. (3) Acute blood loss anemia: Code(s): D62 - Acute posthemorrhagic anemia Status: Acute Assessment and Plan: Per GI and surgery. Endoscopy planned today. (4) HTN (hypertension): Onset Date: Unknown Code(s): I10 - Essential (primary) hypertension Status: Acute Assessment and Plan: Fair control at this time, elevated at presentation. Continue to monitor closely. If remains relatively hypotensive will need to reduce/hold antihypertensives. 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 Patient cannot recall which statins precisely but recalls problems with simvastatin and atorvastatin and minimum. She states there were several she tried and could not tolerate due to myalgias/arthralgias. We discussed the importance of therapy in this regard and while she agreed she could not tolerate them in the past. (6) History of TIA (transient ischemic attack): Code(s): Z86.73 - Personal history of transient ischemic attack (TIA), and cerebral infarction without residual deficits Status: Acute Assessment and Plan: Etiology unknown, remoted. As above. At a minimum, aspirin and statin therapy would be advised in addition to control blood pressure and lifestyle modifications. No known prior diagnosis of atrial fibrillation/flutter oor PFO/ASD as potential explanation. Continue to monitor clinically. 2D echocardiogram pending. History of Present Illness History of Present Illness Consult date/time: Date of service: 09/10/19 12:32 This is a cardiology consultation at the request of Dr. Salazar for our opinion regarding chest pain and elevated troponin. Requesting physician: Homer Salazar MD Consult reason: chest pain Reason For Visit: Lower GI bleed Narrative: Patient is a very pleasant 79-year-old female with a past medical history s
--- NOTE | 2019-09-10 12:40 | PC.NURSE ---
To GI Lab per [stretcher ], IV [potassium infusing. ]
[2019-09-10] MEDS: LACTATED RINGERS 1,000 ML 150 ML IV CONT ×2 (12:56→13:31)
[2019-09-10 12:58] LABS: Hematocrit 30.5 % (37.0-47.0); Hemoglobin 10.1 g/dL (12.0-15.0)
--- NOTE | 2019-09-10 13:10 | WPDANESEPPF ---
Anes - Initial Pre Proc Eval Procedure: Operation Date: 09/10/19 12:30 Proposed Procedures p Esophagogastroduodenoscopy & Colonoscopy - Michi Nobles MD Date/Time: 09/10/19 13:10 Surgeon: Domenica Hardin PA-C Pre Op Diagnosis: Lower GI bleed Patient Data Age: 79 Gender: F Height: 5 ft 1.5 in Weight: 71.5 kg Last Vital Signs Temp 97.9 F 09/10/19 12:52 Pulse 57 L 09/10/19 12:52 Resp 16 09/10/19 12:52 BP 133/71 09/10/19 12:52 Pulse Ox 99 09/10/19 12:52 Allergies Allergy/AdvReac Type Severity Reaction Status Date / Time codeine Allergy Unknown Unknown Verified 09/10/19 12:52 meperidine Allergy Unknown Unknown Verified 09/10/19 12:52 SHELLFISH Allergy Unknown Unknown Uncoded 09/10/19 12:52 Home Medications Medication Instructions Recorded Confirmed Type amlodipine 5 mg PO DAILY 09/08/19 09/08/19 History aspirin 325 mg PO DAILY 09/08/19 09/08/19 History diclofenac sodium 75 mg PO BID 09/08/19 09/08/19 History dicyclomine 10 mg PO TID PRN 09/08/19 09/08/19 History propranolol 160 mg PO DAILY 09/08/19 09/08/19 History Laboratory Tests 09/07/19 09/09/19 09/09/19 23:48 15:18 15:19 WBC 7.1 K/mm3 K/mm3 (4.5-10.0) RBC 2.74 M/mm3 L M/mm3 (4.2-5.4) Hgb 8.3 g/dL L g/dL (12.0-15.0) Hct 25.8 % L % (37.0-47.0) MCV 94.2 fl fl (80-100) MCH 30.3 pg pg (26-34) MCHC 32.2 g/dl g/dl (32-36) RDW 14.6 % H % (11.5-14.5) Plt Count 204 k/mm3 k/mm3 (150-375) MPV 10.3 fl fl (7.4-10.4) Immature Gran % (Auto) 0.6 % H % (0-0.5) Neut % (Auto) 61.5 % % (45.5-73.1) Lymph % (Auto) 26.6 % % (18.3-44.2) [place] % (Auto) 8.3 % % (2.6-8.5) Eos % (Auto) 2.4 % % (0-4.4) Baso % (Auto) 0.6 % % (0.2-1.2) Lymph # (Auto) 1.88 K/mm3 K/mm3 (0.9-3.2) [place] # (Auto) 0.6 K/mm3 K/mm3 (0.1-0.6) Eos # (Auto) 0.2 K/mm3 K/mm3 (0-0.3) Baso # (Auto) 0.0 K/mm3 K/mm3 (0.0-0.1) Abs Immat Gran (auto) 0.04 K/mm3 H K/mm3 (0.00-0.031) Absolute Neuts (auto) 4.4 K/mm3 K/mm3 (1.3-6.7) Absolute Nucleated RBC 0.0 K/mm3 K/mm3 (0.0-0.012) Nucleated RBC % 0.0 % % (0.0-0.2) Sodium 136 mmol/L L mmol/L (137-145) Potassium 3.4 mmol/L mmol/L (3.4-5.0) Chloride 105 mmol/L mmol/L (98-107) Carbon Dioxide 27 mmol/L mmol/L (22-30) BUN 12 mg/dL mg/dL (7-17) Creatinine 0.60 mg/dL L mg/dL (0.7-1.0) Estim Creat Clear Calc 57 ml/min ml/min Estimated GFR > 60 (59 - ) Glucose 89 mg/dL mg/dL (65-105) Calcium 8.2 mg/dL L mg/dL (8.4-10.2) Total Bilirubin 0.3 mg/dL mg/dL (0.2-1.3) AST 20 U/L U/L (14-36) ALT 13 U/L U/L (4-35) Alkaline Phosphatase 47 U/L U/L (38-126) Troponin I Total Protein 6.0 g/dL L g/dL (6.3-8.2) Albumin 3.4 g/dL L g/dL (3.5-5.1) Blood Type AB Positive Antibody Screen Negative Crossmatch See Detail 09/09/19 09/09/19 09/09/19 15:19 15:19 20:00 WBC RBC Hgb 8.3 g/dL L g/dL Cancelled (12.0-15.0) Hct 25.5 % L % Cancelled (37.0-47.0) MCV MCH MCHC RDW Plt Count MPV Immature Gran % (Auto) Neut % (Auto) Lymph % (Auto) [place] % (Auto) Eos % (Auto) Baso % (Auto) Lymph # (Auto) [place] # (Auto) Eos # (Auto) Baso # (Auto) Abs Immat Gran (auto) Absolute Neuts (auto) Absolute Nucleated RBC Nucleated RBC % Sodium Potassium C
--- NOTE | 2019-09-10 14:49 | PC.NURSE ---
Returned from GI Lab.
--- NOTE | 2019-09-10 16:38 | PM.PNGS ---
Progress Note: A&P Assessment and Plan (1) Acute lower GI bleeding: Onset Date: ~09/07/19 Code(s): K92.2 - Gastrointestinal hemorrhage, unspecified Status: Acute Assessment and Plan: This was the main reason for her admission. She had no active bleeding today at colonoscopy but signs of bleeding from diverticuli in the right colon. Dr. Camacho stated that she had many diverticuli throughout her colon. Also apparently on EGD she had some gastritis and possibly some polyps. See report. (2) Elevated troponin I level: Onset Date: ~09/09/19 Code(s): R79.89 - Other specified abnormal findings of blood chemistry Status: Acute Assessment and Plan: See notes from last night and labs. Medicine Services caring for this. (3) Chest pain: Onset Date: ~09/09/19 Code(s): R07.9 - Chest pain, unspecified Status: Acute (4) Hypokalemia: Code(s): E87.6 - Hypokalemia Status: Acute (5) Abnormal CT scan, colon: Onset Date: ~09/08/19 Code(s): R93.3 - Abnormal findings on diagnostic imaging of other parts of digestive tract Status: Acute (6) Acute blood loss anemia: Code(s): D62 - Acute posthemorrhagic anemia Status: Acute Additional Plan Please keep patient on clear liquids for the next 12 hours. I will check her around breakfast tomorrow and if she is doing well increase the diet in preparation for discharge. If patient shows signs of rebleeding we need to consider semi-urgent right hemicolectomy (hand assist laparoscopic type). These things were discussed and explained to the patient this afternoon and she understands and wished proceed in this manner. Time Spent With Patient < 15 min. Subjective Subjective Date/Time Seen: 09/10/19 15:38 Patient back from her EGD size colonoscopy recently. States she has not had a bowel movement since returning. States that she did have dark blood with each of her bowel movements even the last few after her bowel prep last evening. I explained to her that talked to Dr. Camacho and he had seen signs of bleeding from diverticula in her right colon. I explained that I therefore for the next 12 hours I would like to keep her on clear liquids and K she Re bleeds while here in the hospital. If she does we would need to consider going ahead with a right hemicolectomy to resect the part that keeps bleeding for her. Review of Systems Constitutional: Constitutional: Reports no additional constitutional complaints ENT: Reports other (Mucous Membranes moist.) Cardiovascular: Cardiovascular: Denies dyspnea Respiratory: Respiratory: Denies pain on inspiration and Denies dyspnea Musculoskeletal: Musculoskeletal: Reports other (No calf swelling or edema) Integumentary/Breasts: Skin/Breast: Reports system reviewed and no additional complaints, except as docu Exam Const: General: cooperative, no acute distress, alert and awake Orientation/consciousness: patient oriented x3 HENMT: Mouth: Yes moist mucous membranes Neck: Neck: normal visual inspection Chest: Chest palpation & inspection: normal inspection of the chest Resp: Effort & Inspection: normal respiratory effort Auscultation: clear to auscultation bilaterally Cardio: Jugular venous distension: no JVD Rate: regular rate Rhythm: regular rhythm GI: Inspection: normal to inspection, no scars and striae GI Palp: No abdominal tenderness Percussion: Yes normal to percussion Auscultation: normal bowel sounds Rectal Exam: deferred Neuro: General: patient oriented x3 and moves all extremities Speech: normal speech Extrem: General: normal exam except as noted Psych: Mental Status: mental status grossly normal Speech and movement: Normal speech and movement present Affect: normal affect Thought content: Yes Normal thought content present Objective Data Vital Signs Vital Signs: Vital Signs - 24 hr 09/09/19 18:24 09/09/19 2
[2019-09-10 18:44] LABS: Hematocrit 27.3 % (37.0-47.0)
[2019-09-10 18:55] LABS: Potassium 3.6 mmol/L (3.4-5.0)
--- NOTE | 2019-09-10 20:01 | PC.NURSE ---
This patient, Caro Garica, was received from [ im[facility] [id number]] on 09/10/19 at 2000. Personal belongings list checked and signed. Patient/family oriented to unit policies and routines
[2019-09-11] VITALS (10 sets, daily range): BP systolic 115–119; BP diastolic 58–88; PULSE 58–65; RESP 16–18; TEMP 35.6–37; O2SAT 94–100
--- NOTE | 2019-09-11 05:00 | ECG_ITS ---
Measurements Intervals [place] Rate: 59 P: 30 DC: 157 QRS: 46 QRSD: 97 T: 135 QT: 421 QTc: 420 Interpretive Statements SINUS BRADYCARDIA ST-T WAVE ABNORMALITY IN HIGH LATERAL LEADS- CONSIDER ISCHEMIA BASELINE ARTIFACT- V4-V5 ABNORMAL ECG Electronically Signed On 09-11-2019 10:32:25 CDT by Cruz Dahl D.O.
[2019-09-11 06:03] LABS: Basophils Percent Auto 0.4 % (0.2-1.2); Eosinophils Absolute Auto 0.2 K/mm3 (0-0.3); Eosinophils Percent Auto 3.6 % (0-4.4); Hematocrit 26.3 % (37.0-47.0); Hemoglobin 8.7 g/dL (12.0-15.0); Immature Granulocyte Absolute 0.02 K/mm3 (0.00-0.031); Immature Granulocyte Percent A 0.3 % (0-0.5); Lymphocytes Absolute Auto 1.86 K/mm3 (0.9-3.2); Lymphocytes Percent Auto 27.8 % (18.3-44.2); Mean Corpuscular HGB Conc 33.1 g/dl (32-36); Mean Corpuscular Hemoglobin 30.3 pg (26-34); Mean Corpuscular Volume 91.6 fl (80-100); Mean Platelet Volume 9.9 fl (7.4-10.4); Monocytes Absolute Auto 0.5 K/mm3 (0.1-0.6); Monocytes Percent Auto 8.1 % (2.6-8.5); Neutrophils Percent Auto 59.8 % (45.5-73.1); Platelet Count Result 172 k/mm3 (150-375); Red Blood Count 2.87 M/mm3 (4.2-5.4); Red Cell Distribution Width 15.4 % (11.5-14.5); White Blood Count 6.7 K/mm3 (4.5-10.0)
[2019-09-11 06:23] LABS: Potassium 3.5 mmol/L (3.4-5.0)
[2019-09-11 06:28] LABS: Alanine Aminotransferase 14 U/L (4-35); Albumin Level 3.1 g/dL (3.5-5.1); Alkaline Phosphatase 39 U/L (38-126); Aspartate Amino Transferase 25 U/L (14-36); Bilirubin,Total 0.4 mg/dL (0.2-1.3); Blood Urea Nitrogen 5 mg/dL (7-17); Calcium 7.8 mg/dL (8.4-10.2); Carbon Dioxide 27 mmol/L (22-30); Chloride 105 mmol/L (98-107); Estimated CRCL calculation 58 ml/min; Estimated Glomerular Filt Rate > 60; Glucose 112 mg/dL (65-105); Sodium 133 mmol/L (137-145)
[2019-09-11 06:34] LABS: Troponin I 0.086 ng/mL (0.000-0.034)
[2019-09-11] MEDS: PANTOPRAZOLE SODIUM IV 40 MG VIAL IV PUSH (09:37)
--- NOTE | 2019-09-11 09:41 | PC.NURSE ---
Pt made npo for right now, will hold off on giving oral morning medications until we know if pt will have a procedure today or not.
[2019-09-11 10:24] LABS: Hematocrit 23.9 % (37.0-47.0); Hemoglobin 7.7 g/dL (12.0-15.0)
--- NOTE | 2019-09-11 10:46 | WPDANESPN ---
Anes - Prog Note Post-Op Date/Time: 09/11/19 10:46 Cardiovascular status: normal Respiratory status: normal Airway patency: baseline Mental status: baseline Post-Op hydration status: normal Vital Signs: Last Vital Signs Temp 36.4 C L 09/11/19 04:56 Pulse 62 09/11/19 08:00 Resp 16 09/11/19 04:56 BP 115/88 09/11/19 04:56 Pulse Ox 94 09/11/19 04:56 I/O: Intake & Output 09/10/19 09/11/19 09/11/19 23:59 07:59 15:59 Intake Total 740 200 240 Output Total 950 350 Balance -210 200 -110 Laboratory Tests 09/11/19 10:08 09/11/19 05:41 09/07/19 09/10/19 09/10/19 23:48 12:43 18:38 WBC RBC Hgb 10.1 L D 9.0 L Hct 30.5 L 27.3 L MCV MCH MCHC RDW Plt Count MPV Immature Gran % (Auto) Neut % (Auto) Lymph % (Auto) [place] % (Auto) Eos % (Auto) Baso % (Auto) Lymph # (Auto) [place] # (Auto) Eos # (Auto) Baso # (Auto) Abs Immat Gran (auto) Absolute Neuts (auto) Absolute Nucleated RBC Nucleated RBC % Sodium Potassium Chloride Carbon Dioxide BUN Creatinine Estim Creat Clear Calc Estimated GFR Glucose Calcium Total Bilirubin AST ALT Alkaline Phosphatase Troponin I Total Protein Albumin Crossmatch See Detail 09/10/19 09/11/19 09/11/19 18:38 05:41 05:41 WBC 6.7 RBC 2.87 L Hgb 8.7 L Hct 26.3 L MCV 91.6 MCH 30.3 MCHC 33.1 RDW 15.4 H Plt Count 172 MPV 9.9 Immature Gran % (Auto) 0.3 Neut % (Auto) 59.8 Lymph % (Auto) 27.8 [place] % (Auto) 8.1 Eos % (Auto) 3.6 Baso % (Auto) 0.4 Lymph # (Auto) 1.86 [place] # (Auto) 0.5 Eos # (Auto) 0.2 Baso # (Auto) 0.0 Abs Immat Gran (auto) 0.02 Absolute Neuts (auto) 4.0 Absolute Nucleated RBC 0.0 Nucleated RBC % 0.0 Sodium 133 L Potassium 3.6 3.5 Chloride 105 Carbon Dioxide 27 BUN 5 L Creatinine 0.60 L Estim Creat Clear Calc 58 Estimated GFR > 60 Glucose 112 H Calcium 7.8 L Total Bilirubin 0.4 AST 25 ALT 14 Alkaline Phosphatase 39 Troponin I 0.086 H* Total Protein 5.0 L Albumin 3.1 L Crossmatch 09/11/19 10:08 WBC RBC Hgb 7.7 L Hct 23.9 L MCV MCH MCHC RDW Plt Count MPV Immature Gran % (Auto) Neut % (Auto) Lymph % (Auto) [place] % (Auto) Eos % (Auto) Baso % (Auto) Lymph # (Auto) [place] # (Auto) Eos # (Auto) Baso # (Auto) Abs Immat Gran (auto) Absolute Neuts (auto) Absolute Nucleated RBC Nucleated RBC % Sodium Potassium Chloride Carbon Dioxide BUN Creatinine Estim Creat Clear Calc Estimated GFR Glucose Calcium Total Bilirubin AST ALT Alkaline Phosphatase Troponin I Total Protein Albumin Crossmatch Post-procedural complaints: none Patient Feedback: Patient satisfied with anesthetic care.
--- NOTE | 2019-09-11 11:22 | WPDGIPROGNO ---
Progress Note: A&P Assessment and Plan (1) Diverticular hemorrhage: Code(s): K57.31 - Diverticulosis of large intestine without perforation or abscess with bleeding Status: Acute Assessment and Plan: colonoscopy yesterday with evidence of recent diverticular bleeding in right colon but could not tell exactly which one was the source (no active bleeding and had several deep diverticula), noted drop in hb today- will continue to monitor and if downtrending or more rectal bleeding we will repeat another colonoscopy again, surgery is in the case. Patient would like to hold off on repeat another colonoscopy if possible (2) Acute blood loss anemia: Code(s): D62 - Acute posthemorrhagic anemia Status: Acute Assessment and Plan: monitor hb, source is diverticular bleeding egd negative for bleeding (3) Chest pain: Onset Date: ~09/09/19 Code(s): R07.9 - Chest pain, unspecified Status: Acute Subjective Date/time seen: 09/11/19 11:22 Interval history: she had small amount of brb per rectum this morning but otherwise doing ok, resting comfortable. Colonoscopy yesterday with multiple large/deep diverticula throughout the colon with stigmata of recent bleeding Review of Systems Review of Systems: All systems reviewed & are unremarkable except as noted in HPI and below Exam Const: General: comfortable and no acute distress HENMT: General nose exam: Normal nares present Eyes: General: appearance normal, both eyes and all related structures Neck: Neck: no JVD Resp: Auscultation: clear to auscultation bilaterally Cardio: Rate: regular rate Rhythm: regular rhythm GI: Inspection: non-distended GI Palp: Yes Soft to palpation Skin: General skin exam: normal color Neuro: General: gait normal Speech: normal speech Extrem: General: normal to inspection Psych: Mental Status: mental status grossly normal Objective Data Vital Signs Vital Signs: Vital Signs - 24 hr 09/10/19 11:30 09/10/19 12:00 09/10/19 12:52 Temperature 97.4 F L 97.7 F 97.9 F Pulse Rate 63 61 57 L Respiratory Rate 16 18 16 Blood Pressure 112/69 141/77 H 133/71 Pulse Oximetry 99 98 99 09/10/19 14:02 09/10/19 14:11 09/10/19 14:22 Temperature Pulse Rate 59 L 58 L 62 Respiratory Rate 17 26 H 24 H Blood Pressure 119/70 129/85 140/74 Pulse Oximetry 95 100 100 09/10/19 14:50 09/10/19 16:00 09/10/19 19:31 Temperature 97 F L 97.2 F L 97.7 F Pulse Rate 54 L 58 L 59 L Respiratory Rate 16 16 18 Blood Pressure 133/74 125/65 116/65 Pulse Oximetry 94 98 94 09/10/19 20:09 09/10/19 21:40 09/11/19 00:00 Temperature 97.5 F L Pulse Rate 66 65 65 Respiratory Rate 16 16 Blood Pressure 119/58 L Pulse Oximetry 95 95 09/11/19 04:00 09/11/19 04:56 09/11/19 08:00 Temperature 97.5 F L Pulse Rate 62 63 62 Respiratory Rate 16 Blood Pressure 115/88 Pulse Oximetry 94 Intake/Output Intake/Output: Intake & Output 09/08/19 09/09/19 09/10/19 09/11/19 23:59 23:59 23:59 23:59 Intake Total 1350 3510 2776.0 440 Output Total 350 3250 1350 350 Balance 9720 203 7708.0 90 Meds/Results Medications: Active Medications Generic Name Dose Route Start Last Admin Trade Name Freq PRN Reason Stop Dose Admin Acetaminophen 650 mg 09/08/19 10:00 Tylenol Tablet PO Q4H PRN Mild pain 1-3, Fever Amlodipine Besylate 5 mg 09/08/19 09:00 09/10/19 07:49 Norvasc PO 5 mg DAILY SALINA Administration Pantoprazole Sodium 40 mg 09/08/19 09:00 09/11/19 09:37 Protonix Iv IV PUSH 40 mg QAM SALINA Administration Propranolol HCl 160 mg 09/08/19 09:00 09/10/19 07:49 Inderal La PO 10/09/19 09:01 160 mg DAILY SALINA Administration Radiology Results: ITS Impressions Abdomen/Pelvis CT 09/08/19 08:41 IMPRESSION: 1. High attenuation material in the ascending colon near the hepatic flexure, likely reflecting active contrast extravasation given history of lower
--- NOTE | 2019-09-11 11:54 | PCDIET ---
Physician consult for Low Fiber diet for 1 week to high fiber diet. See Nutritional Teaching Intervention. Thank you for the consult.
--- NOTE | 2019-09-11 12:03 | PM.IMPN ---
Progress Note: A&P Assessment and Plan (1) Diverticular hemorrhage: Code(s): K57.31 - Diverticulosis of large intestine without perforation or abscess with bleeding Status: Acute Assessment and Plan: She presented with bright red blood per rectum that started 09/07/19. GI and general surgery are on board. CT revealed high attenuation material in the ascending colon suggesting possible contrast extravasation. She underwent colonoscopy 09/10/19 which revealed multiple wide-mouth diverticula throughout the colon with evidence of recent bleeding, predominantly on the right side of the colon. There was no evidence of active bleeding. Two polyps (3mm and 5mm) were excised. She also had a single, small, uncomplicated internal hemorrhoid without evidence of active bleeding. She reports one episode of bright red blood in her stool today. Her abdominal exam is benign. Plan to monitor closely. If her Hb continues to decrease or she continues to have recurrent bleeding, she will need repeat colonoscopy. General surgery is also on board and has discussed possible right hemicolectomy if the pt has persistent bleeding. (2) Anemia: Onset Date: Unknown Qualifiers: Anemia type: other cause Other causes of anemia: acute posthemorrhagic Qualified Code(s): D62 - Acute posthemorrhagic anemia Code(s): D64.9 - Anemia, unspecified Status: Acute Assessment and Plan: Normocytic. At presentation H&H was normal. Her anemia is due to acute blood loss from diverticular bleeding. She required 2 units pRBC 09/09. Hb was 8.7 and Hct 26.3 on AM labs. Repeat Hb was 7.7 and Hct 23.9 at 11AM. She is asymptomatic at this time. Plan to monitor closely with repeat H&H this afternoon. Plan to transfuse PRN Hb <7. (3) HTN (hypertension): Onset Date: Unknown Qualifiers: Hypertension type: essential hypertension Qualified Code(s): I10 - Essential (primary) hypertension Code(s): I10 - Essential (primary) hypertension Status: Acute Assessment and Plan: Blood pressures were reviewed and are stable. The AM reading was 115/88. Plan to continue amlodipine and propranolol. Continue to monitor closely. (4) Hypokalemia: Code(s): E87.6 - Hypokalemia Status: Resolved Assessment and Plan: The patient had hypokalemia 09/09. Potassium has stabilized today. Will continue to monitor. (5) Chest pain: Onset Date: ~09/09/19 Qualifiers: Chest pain type: unspecified Qualified Code(s): R07.9 - Chest pain, unspecified Code(s): R07.9 - Chest pain, unspecified Status: Resolved Assessment and Plan: Patient had an episode of chest pain with exertion the evening of 09/09/19 at approximately 7:00 pm that resolved with rest. EKG demonstrated T-wave inversion. Her troponin was elevated with a flat trend of 0.047, 0.040 and 0.035. Her pain has resolved. She does have risk factors for cardiac disease given her age, family history, HTN, and history of TIA, but she has no history of CAD. Cardiology is on board and recommendations are greatly appreciated. Demand ischemia with type 2 infarct is suspected due to severe anemia which was present during the episode. She will need an ischemic evaluation which will likely be performed outpatient. ASA is on hold at this time due to her anemia requiring transfusion and ongoing blood loss. Echocardiogram was ordered and revealed normal LV systolic function with EF 65-70%, mildly increased left ventricular wall thickness, grade 1 diastolic dysfunction, mild left atrial enlargement, mild mitral regurgitation, trace tricuspid regurgitation, and no pulmonary hypertension. There was evidence of wall motion abnormalities. Plan to resume ASA once stable from a GI standpoint. (6) History of TIA (transient ischemic attack): Code(s): Z86.73 - Personal history of transient ischemic attack (TIA), and cerebral infarct
[2019-09-11] MEDS: AMLODIPINE BESYLATE 5 MG TABLET PO (12:07)
--- NOTE | 2019-09-11 12:07 | PM.PNCARD ---
Progress Note: A&P Assessment and Plan (1) Chest pain: Onset Date: ~09/09/19 Code(s): R07.9 - Chest pain, unspecified Status: Acute Assessment and Plan: No recurrent chest pain. Troponin slightly elevated pretty yesterday 0.086. Twelve lead EKG largely unchanged if anything slightly improved. Patient clinically stable at this time. Unable to utilize antiplatelet or anticoagulant therapy. Intolerant to statins unfortunately. Ischemic evaluation as outpatient once patient was further stabilized from GI bleed and improvement in her blood loss anemia. Suspect she has underlying CAD manifested as demand ischemia due to severe anemia. Echocardiogram personally reviewed EF 65-70% without wall motion abnormalities mild mitral regurgitation mild left atrial enlargement. (2) Elevated troponin I level: Onset Date: ~09/09/19 Code(s): R79.89 - Other specified abnormal findings of blood chemistry Status: Acute Assessment and Plan: As above, most likely type 2 infarct not acute coronary syndrome and/or plaque rupture. However, I suspect she has underlying CAD given risk factors so anticipate ischemic evaluation most likely as an outpatient. Provided patient remains asymptomatic and hemodynamically stable will continue with conservative observation/management. (3) Acute blood loss anemia: Code(s): D62 - Acute posthemorrhagic anemia Status: Acute Assessment and Plan: Colonoscopy revealed deep diverticula with stigmata of recent bleed without identified source. Possible repeat study if her current bright red blood per rectum per GI. Fall H&H closely. Hold off on transfusion unless hemoglobin drops below 7 and/or recurrent anginal sxs. (4) HTN (hypertension): Onset Date: Unknown Code(s): I10 - Essential (primary) hypertension Status: Acute Assessment and Plan: Fair control at this time, elevated at presentation. Continue to monitor closely. If remains relatively hypotensive will need to reduce/hold antihypertensives. 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 Patient cannot recall which statins precisely but recalls problems with simvastatin and atorvastatin and minimum. She states there were several she tried and could not tolerate due to myalgias/arthralgias. We discussed the importance of therapy in this regard and while she agreed she could not tolerate them in the past. (6) History of TIA (transient ischemic attack): Code(s): Z86.73 - Personal history of transient ischemic attack (TIA), and cerebral infarction without residual deficits Status: Acute Assessment and Plan: Etiology unknown, remoted. As above. At a minimum, aspirin and statin therapy would be advised in addition to control blood pressure and lifestyle modifications. No known prior diagnosis of atrial fibrillation/flutter oor PFO/ASD as potential explanation. Continue to monitor clinically. 2D echocardiogram pending. Subjective Date/time seen: Date of Service: 09/11/19 12:07 Follow up for CP, elevated troponin I Interval history: Feels well. No new issues overnight. Denies any recurrence of chest pain, shortness of breath or dizziness. Had small amount of bright red blood this morning but no recurrent subsequently. Repeat hemoglobin later this morning dropped from 8.7-7.7. Troponin this morning slightly elevated 0.086. Colonoscopy yesterday with deep diverticula and stigmata of recent bleed source not identified. Review of Systems Review of Systems: All systems reviewed & are unremarkable except as noted in HPI and below Constitutional: Constitutional: Reports as per HPI, Reports no additional constitutional com
[2019-09-11 16:24] LABS: Hematocrit 25.4 % (37.0-47.0)
--- NOTE | 2019-09-11 17:07 | PM.PNGS ---
Progress Note: A&P Assessment and Plan (1) Acute lower GI bleeding: Onset Date: ~09/07/19 Code(s): K92.2 - Gastrointestinal hemorrhage, unspecified Status: Acute Assessment and Plan: Dr. Camacho stated that she had many diverticuli throughout her colon On yesterday's colonoscopy. Also apparently on EGD she had some gastritis and possibly some polyps. See report. I kept the patient on clear liquids overnight. She had another bloody bowel movement this morning so it is equivocal as to whether she has stop bleeding she certainly has slowed down. We will continue clear liquids and Dr. Camacho will re-evaluate for possible repeat colonoscopy with clip placement if she begins bleeding more briskly will consider nuclear medicine red cell tag scan. (Appears Dr. Camacho has ordered this) 1705 with a rate results. (2) Elevated troponin I level: Onset Date: ~09/09/19 Code(s): R79.89 - Other specified abnormal findings of blood chemistry Status: Acute Assessment and Plan: See notes from last night and labs. Cardiology and Medicine Services caring for this. appreciate their help. (3) Chest pain: Onset Date: ~09/09/19 Qualifiers: Chest pain type: unspecified Qualified Code(s): R07.9 - Chest pain, unspecified Code(s): R07.9 - Chest pain, unspecified Status: Resolved Assessment and Plan: Now resolved but may have vascular issues in view her echocardiogram and the elevated repeat troponin. See cardiology note. (4) Hypokalemia: Code(s): E87.6 - Hypokalemia Status: Resolved (5) Abnormal CT scan, colon: Onset Date: ~09/08/19 Code(s): R93.3 - Abnormal findings on diagnostic imaging of other parts of digestive tract Status: Acute (6) Acute blood loss anemia: Code(s): D62 - Acute posthemorrhagic anemia Status: Acute Additional Plan Patient how in p.o. for for possible repeat colonoscopy tomorrow. Repeat CBC in a.m.. If patient shows signs of rebleeding we need to consider semi-urgent right hemicolectomy (hand assist laparoscopic type). These things were discussed and explained to the patient and she understands and wished proceed in this manner. Will continue to follow closely with you. Subjective Subjective Date/Time Seen: late entry at 5:07 p.m. for patient seen this date 09/11/19 @ 10:07 this morning I was called that the patient had a bloody stool. I had kept her on clear liquids overnight so we made her NPO and I came to see her this morning. She was feeling fine, vital signs were stable. Patient denies having any cramping just before this bowel movement. The nurse and pt state that it was not pure blood but some chunks of stool along with some red-tinged fluid in the toilet. Nurse could not determine the amount of blood in the toilet. Patient understands that this is a serious situation and she is willing to continue on just clear liquids and have a repeat H&H 10:00 a.m.. Repeat H&H 10:00 a.m. down to 7.7 Repeat H& H @ 1600 up to 8.8. Patient has had 2 more stools with about 150 cc measured bloody fluid in them. In the interim Dr. Camacho, who I discussed her case with this morning, has seen her and has decided to proceed with a nuclear medicine study this afternoon and possible repeat colonoscopy tomorrow. See plan below. Review of Systems Constitutional: Constitutional: Reports as per HPI, Reports no additional constitutional complaints and Denies headache(s) Eyes: Eyes: Denies loss of vision and Denies eye pain ENT: Reports Normal hearing present, Denies change in voice, Denies dizziness, Denies headache(s) and Reports other (Mucous Membranes moist.) Cardiovascular: Cardiovascular: Denies chest pain and Denies dyspnea Respiratory: Respiratory: Denies pain on inspiration, Denies dyspnea and Denies wheezing Gastrointestinal: Gastrointestinal: Denies abdomi
[2019-09-12] VITALS (13 sets, daily range): BP systolic 104–144; BP diastolic 58–63; PULSE 52–69; RESP 12–16; TEMP 36.2–36.8; O2SAT 97–100
[2019-09-12] MEDS: MAGNESIUM CITRATE 300 ML BTL PO (04:53)
[2019-09-12] MEDS: ONDANSETRON INJ 4 MG/2 ML VIAL IV PUSH (06:09)
[2019-09-12 06:24] LABS: Hematocrit 26.1 % (37.0-47.0); Hemoglobin 8.3 g/dL (12.0-15.0); Mean Corpuscular HGB Conc 31.8 g/dl (32-36); Mean Corpuscular Volume 94.2 fl (80-100); Mean Platelet Volume 10.1 fl (7.4-10.4); Platelet Count Result 213 k/mm3 (150-375); Red Blood Count 2.77 M/mm3 (4.2-5.4); Red Cell Distribution Width 15.7 % (11.5-14.5); White Blood Count 6.6 K/mm3 (4.5-10.0)
[2019-09-12 06:38] LABS: Alanine Aminotransferase 16 U/L (4-35); Albumin Level 3.3 g/dL (3.5-5.1); Alkaline Phosphatase 44 U/L (38-126); Aspartate Amino Transferase 27 U/L (14-36); Bilirubin,Total 0.5 mg/dL (0.2-1.3); Blood Urea Nitrogen 8 mg/dL (7-17); Calcium 8.2 mg/dL (8.4-10.2); Carbon Dioxide 28 mmol/L (22-30); Chloride 104 mmol/L (98-107); Estimated CRCL calculation 50 ml/min; Estimated Glomerular Filt Rate > 60; Glucose 110 mg/dL (65-105); Magnesium 2.4 mg/dL (1.6-2.3); Potassium 3.3 mmol/L (3.4-5.0); Sodium 138 mmol/L (137-145)
[2019-09-12 07:36] LABS: Hemoglobin A1C 5.8 % (<5.7)
[2019-09-12] MEDS: AMLODIPINE BESYLATE 5 MG TABLET PO (08:40)
[2019-09-12] MEDS: PANTOPRAZOLE SODIUM IV 40 MG VIAL IV PUSH (08:41)
--- NOTE | 2019-09-12 09:50 | PM.IMPN ---
Progress Note: A&P Assessment and Plan (1) Diverticular hemorrhage: Code(s): K57.31 - Diverticulosis of large intestine without perforation or abscess with bleeding Status: Acute Assessment and Plan: She presented with bright red blood per rectum that started 09/07/19. GI and general surgery are on board. CT revealed high attenuation material in the ascending colon suggesting possible contrast extravasation. She underwent colonoscopy 09/10/19 which revealed multiple wide-mouth diverticula throughout the colon with evidence of recent bleeding, predominantly on the right side of the colon. There was no evidence of active bleeding. Two polyps (3mm and 5mm) were excised and pathology shows a small tubular adenoma. She will need to follow-up with GI for repeat colonoscopy as indicated. She also had a single, small, uncomplicated internal hemorrhoid without evidence of active bleeding. She reports one episode of bright red blood in her stool 09/10 and two melanotic stools today (09/11) which were likely old blood following mag citrate. She has not had any further episodes of hematochezia. Her abdominal exam is benign. Plan to continue to monitor closely. She will undergo tagged RBC nuclear medicine scan today. Hb is stable today at 8.3 and Hct 26.1. General surgery is also on board and has discussed possible right hemicolectomy if the pt has persistent bleeding. (2) Anemia: Onset Date: Unknown Qualifiers: Anemia type: other cause Other causes of anemia: acute posthemorrhagic Qualified Code(s): D62 - Acute posthemorrhagic anemia Code(s): D64.9 - Anemia, unspecified Status: Acute Assessment and Plan: Normocytic. At presentation H&H was normal. Her anemia is due to acute blood loss from diverticular bleeding. She required 2 units pRBC 09/09. Hb and Hct are stable today at 8.3. and 26.1 respectively. Will continue to monitor and transfuse PRN to maintain Hb >7. (3) HTN (hypertension): Onset Date: Unknown Qualifiers: Hypertension type: essential hypertension Qualified Code(s): I10 - Essential (primary) hypertension Code(s): I10 - Essential (primary) hypertension Status: Acute Assessment and Plan: Blood pressures were reviewed and are reasonably controlled. Plan to continue amlodipine and propranolol. Continue to monitor closely. (4) Hypokalemia: Code(s): E87.6 - Hypokalemia Status: Resolved Assessment and Plan: The patient had hypokalemia 09/09. Potassium today is 3.3. Will replace with 40mEq potassium chloride. Continue to monitor. (5) Chest pain: Onset Date: ~09/09/19 Qualifiers: Chest pain type: unspecified Qualified Code(s): R07.9 - Chest pain, unspecified Code(s): R07.9 - Chest pain, unspecified Status: Resolved Assessment and Plan: Patient had an episode of chest pain with exertion the evening of 09/09/19 at approximately 7:00 pm that resolved with rest. EKG demonstrated T-wave inversion. Her troponin was elevated with a flat trend of 0.047, 0.040 and 0.035. Her pain has resolved. She does have risk factors for cardiac disease given her age, family history, HTN, and history of TIA, but she has no history of CAD. Cardiology is on board and recommendations are greatly appreciated. Demand ischemia with type 2 infarct is suspected due to severe anemia which was present during the episode. She will need an ischemic evaluation which will likely be performed outpatient. ASA is on hold at this time due to her anemia requiring transfusion and ongoing blood loss. Echocardiogram was ordered and revealed normal LV systolic function with EF 65-70%, mildly increased left ventricular wall thickness, grade 1 diastolic dysfunction, mild left atrial enlargement, mild mitral regurgitation, trace tricuspid regurgitation, and no pulmonary hypertension. There was evidence of wall motion abnormalities. Plan to
--- NOTE | 2019-09-12 09:50 | WPDGIPROGNO ---
Progress Note: A&P Assessment and Plan (1) Diverticular hemorrhage: Code(s): K57.31 - Diverticulosis of large intestine without perforation or abscess with bleeding Status: Acute Assessment and Plan: had dark blood, probably old after I gave her Mag citrate and stable hb ~ 8 since yesterday most likely bleeding resolved, no need to repeat colonoscopy unless brisk bleeding again but will get nuclear medicine RBC tagged scan monitor hb, ok to resume liquid diet and if stable probably go home tomorrow (2) Acute blood loss anemia: Code(s): D62 - Acute posthemorrhagic anemia Status: Acute Assessment and Plan: monitor hb, source is diverticular bleeding egd negative for bleeding (3) Chest pain: Onset Date: ~09/09/19 Qualifiers: Chest pain type: unspecified Qualified Code(s): R07.9 - Chest pain, unspecified Code(s): R07.9 - Chest pain, unspecified Status: Resolved Subjective Date/time seen: 09/12/19 09:50 Interval history: she had Mg citrate earlier as bowel prep and only noted small amount of dark blood with stool, most likely old. Hb stable at 8 and she is doing well, no pain. Review of Systems Review of Systems: All systems reviewed & are unremarkable except as noted in HPI and below Exam Const: General: comfortable and no acute distress HENMT: General nose exam: Normal nares present Eyes: General: appearance normal, both eyes and all related structures Neck: Neck: no JVD Resp: Auscultation: clear to auscultation bilaterally Cardio: Rate: regular rate Rhythm: regular rhythm GI: Inspection: non-distended GI Palp: Yes Soft to palpation Skin: General skin exam: normal color Neuro: General: gait normal Speech: normal speech Extrem: General: normal to inspection Psych: Mental Status: mental status grossly normal Objective Data Vital Signs Vital Signs: Vital Signs - 24 hr 09/11/19 12:00 09/11/19 12:07 09/11/19 14:29 Temperature 96.0 F L Pulse Rate 63 58 L 62 Respiratory Rate 18 Blood Pressure 117/64 Pulse Oximetry 98 09/11/19 16:00 09/11/19 19:39 09/11/19 20:00 Temperature 98.6 F Pulse Rate 58 L 60 59 L Respiratory Rate 16 Blood Pressure 116/67 Pulse Oximetry 100 09/12/19 00:00 09/12/19 04:00 09/12/19 04:54 Temperature 97.6 F Pulse Rate 59 L 59 L 55 L Respiratory Rate 16 Blood Pressure 122/63 Pulse Oximetry 100 09/12/19 06:09 09/12/19 08:00 09/12/19 08:40 Temperature Pulse Rate 61 69 60 Respiratory Rate Blood Pressure 144/59 H Pulse Oximetry 98 09/12/19 09:44 Temperature Pulse Rate 60 Respiratory Rate 16 Blood Pressure Pulse Oximetry 98 Intake/Output Intake/Output: Intake & Output 09/09/19 09/10/19 09/11/19 09/12/19 23:59 23:59 23:59 23:59 Intake Total 3510 2776.0 680 Output Total 3250 1350 950 350 Balance 260 1426.0 -270 -350 Meds/Results Medications: Active Medications Generic Name Dose Route Start Last Admin Trade Name Freq PRN Reason Stop Dose Admin Acetaminophen 650 mg 09/08/19 10:00 Tylenol Tablet PO Q4H PRN Mild pain 1-3, Fever Amlodipine Besylate 5 mg 09/08/19 09:00 09/12/19 08:40 Norvasc PO 5 mg DAILY SALINA Administration Ondansetron HCl 4 mg 09/12/19 06:04 09/12/19 06:09 Zofran Inj IV PUSH 4 mg Q6H PRN Administration Nausea And Vomiting Pantoprazole Sodium 40 mg 09/08/19 09:00 09/12/19 08:41 Protonix Iv IV PUSH 40 mg QAM SALINA Administration Potassium Chloride 40 meq 09/12/19 09:49 Kcl Tablet PO 09/12/19 09:50 ONCE ONE Propranolol HCl 160 mg 09/08/19 09:00 09/12/19 08:40 Inderal La PO 10/09/19 09:01 160 mg DAILY SALINA Administration Radiology Results: ITS Impressions Abdomen/Pelvis CT 09/08/19 08:41 IMPRESSION: 1. High attenuation material in the ascending colon near the hepatic flexure, likely reflecting active contrast extravasation given hist
[2019-09-12] MEDS: POTASSIUM CHLORIDE 20 MEQ TABLET 40 MEQ PO (10:21)
--- NOTE | 2019-09-12 14:33 | PM.PNCARD ---
Progress Note: A&P Assessment and Plan (1) Chest pain: Onset Date: ~09/09/19 Qualifiers: Chest pain type: unspecified Qualified Code(s): R07.9 - Chest pain, unspecified Code(s): R07.9 - Chest pain, unspecified Status: Resolved Assessment and Plan: No recurrent chest pain. Troponin slightly elevated from admission to 0.086. Clinically stable at this time. Unable to utilize antiplatelet or anticoagulant therapy. Intolerant to statins unfortunately. Ischemic evaluation as outpatient once she had further stabilized from GI bleed and improvement in her blood loss anemia. Suspect she has underlying CAD manifested as demand ischemia due to severe anemia. Echocardiogram EF 65-70% without wall motion abnormalities mild mitral regurgitation mild left atrial enlargement. (2) Elevated troponin I level: Onset Date: ~09/09/19 Code(s): R79.89 - Other specified abnormal findings of blood chemistry Status: Acute Assessment and Plan: As above, most likely type 2 infarct not acute coronary syndrome and/or plaque rupture. Suspect she has underlying CAD given risk factors so anticipate ischemic evaluation as an outpatient. Provided she remains asymptomatic and hemodynamically stable will continue with conservative observation/management . (3) Acute blood loss anemia: Code(s): D62 - Acute posthemorrhagic anemia Status: Acute Assessment and Plan: Colonoscopy revealed deep diverticula with stigmata of recent bleed without identified source. Appreciate GI evaluation and recommendations. Follow-up H&H closely. Hold off on transfusion unless hemoglobin drops below 7 and/or recurrent anginal sxs. Nuclear medicine RBC tagged scan pending (4) HTN (hypertension): Onset Date: Unknown Qualifiers: Hypertension type: essential hypertension Qualified Code(s): I10 - Essential (primary) hypertension Code(s): I10 - Essential (primary) hypertension Status: Acute Assessment and Plan: Blood pressure improved with rare episodes of hypertension. Continue amlodipine at 5 mg daily. 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 She cannot recall which statins precisely but recalls problems with simvastatin and atorvastatin at a minimum. She states there were several she tried and could not tolerate due to myalgias/arthralgias. Importance of therapy has been discussed but she still states that she is intolerant. (6) History of TIA (transient ischemic attack): Code(s): Z86.73 - Personal history of transient ischemic attack (TIA), and cerebral infarction without residual deficits Status: Chronic Assessment and Plan: Etiology unknown, remoted. As above. At a minimum, aspirin and statin therapy would be advised in addition to control blood pressure and lifestyle modifications. No known prior diagnosis of atrial fibrillation/flutter or PFO/ASD as potential explanation. Continue to monitor clinically. Echo as above Additional Plan Plan discussed with Dr White [id number] 09/12/2019 Time Spent With Patient Time with patient: less than 15 minutes Subjective Date/time seen: 09/12/19 15:18 Interval history: Follow-up for: Chest pain, mild elevation of troponin, acute blood-loss anemia, hypertension, hyperlipidemia Date of service: 09/12/2019. Subjective: Denied chest discomfort, shortness of breath, lightheadedness or palpitations. Was nauseated this morning but thinks it is because she has been NPO Review of Systems Co
--- NOTE | 2019-09-12 15:42 | PM.PNGS ---
Progress Note: A&P Assessment and Plan (1) Diverticular hemorrhage: Code(s): K57.31 - Diverticulosis of large intestine without perforation or abscess with bleeding Status: Acute (2) Acute lower GI bleeding: Onset Date: ~09/07/19 Code(s): K92.2 - Gastrointestinal hemorrhage, unspecified Status: Acute Assessment and Plan: 09/10/19 Colonoscopy revealed right-sided diverticular bleeding as the source but with no active bleeding during endoscopy. Initially there was a plan for possible repeat colonoscopy today, patient was prepped, but her H&H remained stable and no concern for active bleeding, therefore colonoscopy has been deferred. Tagged RBC scan ordered and results pending. If there is no findings of an active bleed and her H&H remain stable tomorrow, then it is okay from a surgical standpoint for her to likely be discharged tomorrow. If the patient does have rebleeding, then we will need to consider a JENN right hemicolectoy, which Dr. Gee has discussed with the patient and I reiterated today. (3) Elevated troponin I level: Onset Date: ~09/09/19 Code(s): R79.89 - Other specified abnormal findings of blood chemistry Status: Acute Assessment and Plan: Cardiology following, recommendations noted. (4) Chest pain: Onset Date: ~09/09/19 Qualifiers: Chest pain type: unspecified Qualified Code(s): R07.9 - Chest pain, unspecified Code(s): R07.9 - Chest pain, unspecified Status: Resolved Assessment and Plan: Cardioloy following. (5) Hypokalemia: Code(s): E87.6 - Hypokalemia Status: Resolved (6) Abnormal CT scan, colon: Onset Date: ~09/08/19 Code(s): R93.3 - Abnormal findings on diagnostic imaging of other parts of digestive tract Status: Acute (7) Acute blood loss anemia: Code(s): D62 - Acute posthemorrhagic anemia Status: Acute Assessment and Plan: H&H remains stable today. Will continue to trend labs. See plan above. (8) Gastritis: Code(s): K29.70 - Gastritis, unspecified, without bleeding Status: Acute Assessment and Plan: Found on upper endoscopy. PPI therapy per GI. Additional Plan Discussed patient's case and plan of care with Dr. Gee. Subjective Subjective Date/Time Seen: 09/12/19 15:42 Patient reports: no new complaints, flatus and bowel movement Interval history: Patient sitting in the chair today and feeling well. No new complaints today. States she has had multiple bowel movements through the night that were black, but no bright blood, from the bowel prep. Reports a short episode of nausea, without vomiting, early this morning while taking the bowel prep on an empty stomach. No other complaints at this time. Review of Systems Review of Systems: All systems reviewed & are unremarkable except as noted in HPI and below Exam Const: General: cooperative, no acute distress, alert and awake Orientation/consciousness: patient oriented x3 GI: Inspection: normal to inspection and non-distended GI Palp: Yes Soft to palpation, No Tenderness to palpation present (GI), No Guarding due to palpation present (GI) and No Rebound tenderness present Auscultation: normal bowel sounds Rectal Exam: deferred Skin: General skin exam: normal color and no rashes or lesions noted Neuro: General: patient oriented x3, moves all extremities and no focal motor deficits Extrem: General: normal to inspection and no calf tenderness Psych: Appearance: grossly normal Mental Status: mental status grossly normal Speech and movement: Normal speech and movement present Affect: normal affect Insight: Good insight present (Psych) Objective Data Vital Signs Vital Signs: Vital Signs - 24 hr 09/11/19 16:00 09/11/19 19:39 09/11/19 20:00 Temperature 37.0 C Pulse Rate 58 L 60 59 L Respiratory Rate 16 Blood Pressure 116/67 Pulse Oximetry 100 09/12/19 00:0
[2019-09-13] VITALS (8 sets, daily range): BP systolic 92–106; BP diastolic 55–77; PULSE 57–72; RESP 14–16; TEMP 36.2; O2SAT 96–100
[2019-09-13 06:18] LABS: Hemoglobin 7.6 g/dL (12.0-15.0); Mean Corpuscular HGB Conc 31.7 g/dl (32-36); Mean Corpuscular Volume 94.9 fl (80-100); Mean Platelet Volume 9.7 fl (7.4-10.4); Platelet Count Result 213 k/mm3 (150-375); Red Blood Count 2.53 M/mm3 (4.2-5.4); Red Cell Distribution Width 15.9 % (11.5-14.5); White Blood Count 5.6 K/mm3 (4.5-10.0)
[2019-09-13 06:26] LABS: Blood Urea Nitrogen 9 mg/dL (7-17); Calcium 7.6 mg/dL (8.4-10.2); Carbon Dioxide 29 mmol/L (22-30); Chloride 103 mmol/L (98-107); Estimated CRCL calculation 44 ml/min; Estimated Glomerular Filt Rate > 60; Glucose 99 mg/dL (65-105); Potassium 3.8 mmol/L (3.4-5.0); Sodium 135 mmol/L (137-145)
--- NOTE | 2019-09-13 07:24 | PM.PNGS ---
Progress Note: A&P Assessment and Plan (1) Diverticular hemorrhage: Code(s): K57.31 - Diverticulosis of large intestine without perforation or abscess with bleeding Status: Acute (2) Acute lower GI bleeding: Onset Date: ~09/07/19 Code(s): K92.2 - Gastrointestinal hemorrhage, unspecified Status: Acute Assessment and Plan: 09/10/19 Colonoscopy revealed right-sided diverticular bleeding as the source but with no active bleeding during endoscopy. The repeat colonoscopy yesterday was canceled because H&H stayed stable. Today her hemoglobin went down slightly from yesterday but the patient has had no signs of bleeding. Tagged RBC scan ordered and results showed no signs of a specific site of continuing bleeding. I believe that her diverticular bleed probably a stop. She will need to be on iron to gradually build up her hemoglobin again. I had a thorough discussion with her today about signs of recurrent lower GI bleeding and that if possible if this is the diagnosis when she is is seen in the future in the ER she should have a urgent nuclear medicine scan to see if this shows where the bleeding is. We would then again try to treat her conservatively were with colonoscopy. But if this is the same spot in the right colon we may need to consider a right hemicolectomy. She understands this and wished to proceed with conservative management. I will advance her diet to low residue soft. In 1 week if she is doing well should convert to a high-fiber diet in order to try to help prevent diverticulitis and further diverticular bleed. Encouraged her to keep follow-up appoint with cardiology to follow up on the possibility of mild ischemic cardiomyopathy. It is okay from a surgical standpoint for her to likely be discharged tomorrow. If the patient does have rebleeding, then we will need to consider a JENN right hemicolectoy, which has discussed with the patient and I reiterated today. (3) Elevated troponin I level: Onset Date: ~09/09/19 Code(s): R79.89 - Other specified abnormal findings of blood chemistry Status: Acute Assessment and Plan: Cardiology following, recommendations noted. (4) Chest pain: Onset Date: ~09/09/19 Qualifiers: Chest pain type: unspecified Qualified Code(s): R07.9 - Chest pain, unspecified Code(s): R07.9 - Chest pain, unspecified Status: Resolved Assessment and Plan: Cardioloy following. (5) Hypokalemia: Code(s): E87.6 - Hypokalemia Status: Resolved (6) Abnormal CT scan, colon: Onset Date: ~09/08/19 Code(s): R93.3 - Abnormal findings on diagnostic imaging of other parts of digestive tract Status: Acute Assessment and Plan: This suggested possible GI bleed in the right colon. Please see report. (7) Acute blood loss anemia: Code(s): D62 - Acute posthemorrhagic anemia Status: Acute Assessment and Plan: H&H remains stable today. It dropped only has a few tense of a%. Will continue to trend labs. Probably should have outpatient CBC early next week to be sure there is not a continued gradual decrease but rather a gradual increase. See plan above. Consider iron supplementation upon discharge. (8) Gastritis: Code(s): K29.70 - Gastritis, unspecified, without bleeding Status: Acute Assessment and Plan: Found on upper endoscopy. PPI therapy per GI. Subjective Subjective Date/Time Seen: 09/13/19 07:24 Patient is sitting up at bedside. Nurse reports her vital signs of in stable on night. Early this morning she had 1 stool which had some formed chunks in slight dark brown old blood. Only about 150 cc. Patient states that her 2 stools last evening or more normal brown but liquid. Patient denies abdominal pain. Patient denies chest pain. Review of Systems Review of Systems: All systems reviewed & are unremarkable except as noted in HPI and below C
[2019-09-13] MEDS: PANTOPRAZOLE SODIUM IV 40 MG VIAL IV PUSH (09:02)
--- NOTE | 2019-09-13 12:01 | WPDGIPROGNO ---
Progress Note: A&P Assessment and Plan (1) Diverticular hemorrhage: Code(s): K57.31 - Diverticulosis of large intestine without perforation or abscess with bleeding Status: Acute Assessment and Plan: no more bleeding, nuclear medicine scan negative hb low but relatively stable, ok to start iron supplement she should be ok to go home by gi standpoint with low residue diet to advance later on to high fiber instructed to come back to ER if bleeding again (2) Acute blood loss anemia: Code(s): D62 - Acute posthemorrhagic anemia Status: Acute Assessment and Plan: cbc as outpatient, ok to start iron supplement because recent blood loss from bleeding (3) Acute lower GI bleeding: Onset Date: ~09/07/19 Code(s): K92.2 - Gastrointestinal hemorrhage, unspecified Status: Acute Subjective Date/time seen: 09/13/19 12:01 Interval history: last BM without blood, no new events. GIB scan was negative for active bleeding. Review of Systems Review of Systems: All systems reviewed & are unremarkable except as noted in HPI and below Exam Const: General: comfortable and no acute distress HENMT: General nose exam: Normal nares present Eyes: General: appearance normal, both eyes and all related structures Neck: Neck: no JVD Resp: Auscultation: clear to auscultation bilaterally Cardio: Rate: regular rate Rhythm: regular rhythm GI: Inspection: non-distended GI Palp: Yes Soft to palpation Skin: General skin exam: normal color Neuro: General: gait normal Speech: normal speech Extrem: General: normal to inspection Psych: Mental Status: mental status grossly normal Objective Data Vital Signs Vital Signs: Vital Signs - 24 hr 09/12/19 15:31 09/12/19 16:00 09/12/19 17:32 Temperature 97.2 F L 98.2 F Pulse Rate 67 55 L 68 Respiratory Rate 12 14 Blood Pressure 107/62 128/62 Pulse Oximetry 100 97 09/12/19 19:51 09/12/19 20:00 09/13/19 00:00 Temperature 98.1 F Pulse Rate 60 59 L 64 Respiratory Rate 16 Blood Pressure 104/58 L Pulse Oximetry 98 09/13/19 04:00 09/13/19 05:58 09/13/19 07:50 Temperature 97.1 F L 97.1 F L Pulse Rate 58 L 61 58 L Respiratory Rate 16 14 Blood Pressure 100/55 L 92/77 L Pulse Oximetry 96 100 09/13/19 08:00 09/13/19 09:02 09/13/19 11:05 Temperature Pulse Rate 57 L 62 Respiratory Rate Blood Pressure 106/56 L Pulse Oximetry Intake/Output Intake/Output: Intake & Output 09/10/19 09/11/19 09/12/19 09/13/19 23:59 23:59 23:59 23:59 Intake Total 2776.0 680 860 220 Output Total 5362 921 0267 300 Balance 1426.0 -270 -590 -80 Meds/Results Medications: Active Medications Generic Name Dose Route Start Last Admin Trade Name Freq PRN Reason Stop Dose Admin Acetaminophen 650 mg 09/08/19 10:00 Tylenol Tablet PO Q4H PRN Mild pain 1-3, Fever Amlodipine Besylate 5 mg 09/08/19 09:00 09/13/19 08:36 Norvasc PO Not Given DAILY SALINA Ondansetron HCl 4 mg 09/12/19 06:04 09/12/19 06:09 Zofran Inj IV PUSH 4 mg Q6H PRN Administration Nausea And Vomiting Pantoprazole Sodium 40 mg 09/08/19 09:00 09/13/19 09:02 Protonix Iv IV PUSH 40 mg QAM SALINA Administration Propranolol HCl 160 mg 09/08/19 09:00 09/13/19 09:02 Inderal La PO 10/09/19 09:01 160 mg DAILY SALINA Administration Radiology Results: ITS Impressions Abdomen/Pelvis CT 09/08/19 08:41 IMPRESSION: 1. High attenuation material in the ascending colon near the hepatic flexure, likely reflecting active contrast extravasation given history of lower GI bleeding. Emergent surgical consultation is recommended. These findings and recommendations were discussed with Dr. Celestino Sullivan MD in the Emergency Department at 0320 hours on 09/08/2019 by the [facility]. GI Bleed Scan Nuclear Medicine 09/12/19 16:14 IMPRESSION: 1. No scintigraphic evidence for active gastrointestin
--- NOTE | 2019-09-13 12:13 | PM.PNCARD ---
Progress Note: A&P Assessment and Plan (1) Chest pain: Onset Date: ~09/09/19 Qualifiers: Chest pain type: unspecified Qualified Code(s): R07.9 - Chest pain, unspecified Code(s): R07.9 - Chest pain, unspecified Status: Resolved Assessment and Plan: No recurrent chest pain. Clinically stable. Unable to utilize antiplatelet or anticoagulant therapy. Intolerant to statins unfortunately. Ischemic evaluation as outpatient once she had further stabilized from GI bleed and improvement in her blood loss anemia. This will be discussed at follow up visit with Dr White Suspect she has underlying CAD manifested as demand ischemia due to severe anemia. Echocardiogram EF 65-70% without wall motion abnormalities mild mitral regurgitation mild left atrial enlargement. (2) Elevated troponin I level: Onset Date: ~09/09/19 Code(s): R79.89 - Other specified abnormal findings of blood chemistry Status: Acute Assessment and Plan: As above, most likely type 2 infarct not acute coronary syndrome and/or plaque rupture. Ischemic evaluation as an outpatient. Provided she remains asymptomatic and hemodynamically stable will continue with conservative observation/management . (3) Acute blood loss anemia: Code(s): D62 - Acute posthemorrhagic anemia Status: Acute Assessment and Plan: Colonoscopy revealed deep diverticula with stigmata of recent bleed without identified source. Appreciate GI and surgery recommendations. Follow-up H&H closely. Hold off on transfusion unless hemoglobin drops below 7 and/or recurrent anginal sxs. Nuclear medicine RBC tagged scan negative (4) HTN (hypertension): Onset Date: Unknown Qualifiers: Hypertension type: essential hypertension Qualified Code(s): I10 - Essential (primary) hypertension Code(s): I10 - Essential (primary) hypertension Status: Acute Assessment and Plan: Blood pressure improved. Soft over night. Will add parameters for amlodipine. 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 She cannot recall which statins precisely but recalls problems with simvastatin and atorvastatin at a minimum. She states there were several she tried and could not tolerate due to myalgias/arthralgias. Importance of therapy has been discussed but she still states that she is intolerant. (6) History of TIA (transient ischemic attack): Code(s): Z86.73 - Personal history of transient ischemic attack (TIA), and cerebral infarction without residual deficits Status: Chronic Assessment and Plan: Etiology unknown, remoted. As above. At a minimum, aspirin and statin therapy would be advised in addition to control blood pressure and lifestyle modifications. No known prior diagnosis of atrial fibrillation/flutter or PFO/ASD as potential explanation. Continue to monitor clinically. Echo as above Additional Plan No further cardiac recommendations. See discharge instructions for follow-up. Plan discussed with Dr White 1220 09/13/2019 Subjective Date/time seen: 09/13/19 12:13 Interval history: Follow-up for: Chest pain, mild elevation of troponin, acute blood-loss anemia, hypertension, hyperlipidemia Date of service: 09/13/2019. Subjective: Anxiously awaiting discharge. Denied chest discomfort, shortness of breath, lightheadedness or palpitations. Feel she is ready to go. Able to verbalize the instructions that she has received so far this morning. Review of Systems Con
[2019-09-13 12:15] LABS: Transferrin 279 mg/dL (206-381)
[2019-09-13 12:18] LABS: Iron 54 ug/dL (37-170)
[2019-09-13 12:27] LABS: Percent Iron Saturation 16 % (20-50)
[2019-09-13 13:13] LABS: Folic Acid 15.9 ng/mL (2.76->20)
--- NOTE | 2019-09-13 13:41 | PM.DS ---
DS: Admitting Diagnosis Admitting Diagnosis Admitting Diagnosis: Gastrointestinal hemorrhage, unspecified DS: Discharge Diagnosis Discharge Diagnosis (1) Diverticular hemorrhage: Code(s): K57.31 - Diverticulosis of large intestine without perforation or abscess with bleeding Status: Acute (2) Anemia: Onset Date: Unknown Qualifiers: Anemia type: other cause Other causes of anemia: acute posthemorrhagic Qualified Code(s): D62 - Acute posthemorrhagic anemia Code(s): D64.9 - Anemia, unspecified Status: Acute (3) HTN (hypertension): Onset Date: Unknown Qualifiers: Hypertension type: essential hypertension Qualified Code(s): I10 - Essential (primary) hypertension Code(s): I10 - Essential (primary) hypertension Status: Acute (4) Hypokalemia: Code(s): E87.6 - Hypokalemia Status: Resolved (5) Chest pain: Onset Date: ~09/09/19 Qualifiers: Chest pain type: unspecified Qualified Code(s): R07.9 - Chest pain, unspecified Code(s): R07.9 - Chest pain, unspecified Status: Resolved Assessment and Plan: (6) History of TIA (transient ischemic attack): Code(s): Z86.73 - Personal history of transient ischemic attack (TIA), and cerebral infarction without residual deficits Status: Chronic Assessment and Plan: (7) Gastritis: Code(s): K29.70 - Gastritis, unspecified, without bleeding Status: Acute DS: Summary Hospital Course Reason for hospitalization: Bright red blood per rectum Hospital Course: Caro Garcia is an 79 y.o. female with a PMH significant for hypertension, TIA on ASA 325mg, and hemorrhoids who presented to the emergency department 09/07/19 with a chief complaint of bright red blood per rectum. Hb was 13.8, Hct 41.3, and platelet count of 251. CT revealed high attenuation material in the ascending colon suggesting possible contrast extravasation and emergent surgical consultation was recommended. Lactic acid was WNL and her abdominal exam was benign. General surgery and GI were consulted from the ED. Colonoscopy was recommended. She continued to have episodes of rectal bleeding. She developed chest pain with exertion the evening of 09/09/19 at approximately 7:00 pm which resolved with rest. EKG demonstrated T-wave inversion. Her troponin was elevated with a flat trend of 0.047, 0.040 and 0.035. Her pain resolved. She did have risk factors for CAD including age, family history, HTN, and history of TIA but no known hx of CAD. Cardiology was consulted and her pain was felt to be due to demand ischemia with type 2 infarct due to severe anemia which was present during the episode. Hb was 6.5 and Hct 19.6 09/10/19 so she was transfused 2 units pRBC. Echocardiogram was ordered and revealed normal LV systolic function with EF 65-70%, mildly increased left ventricular wall thickness, grade 1 diastolic dysfunction, mild left atrial enlargement, mild mitral regurgitation, trace tricuspid regurgitation, and no pulmonary hypertension. There was no evidence of wall motion abnormalities. Per cardiology, she will need an ischemic evaluation outpatient once she has stabilized from her GI bleeding and anemia. Statin therapy was recommended due to hx of TIA but she is intolerant. She underwent colonoscopy 09/10/19 which revealed multiple wide-mouth diverticula throughout the colon with evidence of recent bleeding, predominantly on the right side of the colon. There was no evidence of active bleeding. Two polyps (3mm and 5mm) were excised and pathology shows a small tubular adenoma. EGD revealed a few areas of localized erosion in the prepyloric area without stigmata of bleeding. Biopsies were obtained and revealed mild chronic inflammation and mild fibrosis with no evidence of intestinal metaplasia. She was advised to continue protonix. She will need to follow-up with GI for repeat colonoscopy as indicated.
== END 2019-09-13 14:40 | disposition home or self-care (01) | DRG 377 ==
LOC: ANHED 23:30 → ANH3MED 09-08 02:56 → ANHIMU 09-10 06:05 → ANH3MED 09-11 01:44 → ANHIMU 09-18 08:38
PROVIDERS: Internal Medicine Cardiovascular Disease; Internal Medicine Gastroenterology; Physician Assistant; Surgery; Admitting Provider Internal Medicine; Emergency Provider Emergency Medicine; PCP Family Medicine Adolescent Medicine; Visit Provider Internal Medicine
PROC: 0DJ08ZZ Inspection of Upper Intestinal Tract, Via Natural or Artificial Opening Endoscopic (ICD-10-PCS; CPT 43235; principal; 2019-09-10 12:30)
DX: K57.31 Diverticulosis of large intestine without perforation or abscess with bleeding (principal); I21.A1 Myocardial infarction type 2; D62 Acute posthemorrhagic anemia; K29.70 Gastritis, unspecified, without bleeding; D12.3 Benign neoplasm of transverse colon; K63.5 Polyp of colon; K64.8 Other hemorrhoids; I10 Essential (primary) hypertension; E87.6 Hypokalemia; E78.5 Hyperlipidemia, unspecified; R93.3 Abnormal findings on diagnostic imaging of other parts of digestive tract; M79.10 Myalgia, unspecified site; T46.6X5A Adverse effect of antihyperlipidemic and antiarteriosclerotic drugs, initial encounter; M19.90 Unspecified osteoarthritis, unspecified site; Z66 Do not resuscitate; Z79.1 Long term (current) use of non-steroidal anti-inflammatories (NSAID); Z79.82 Long term (current) use of aspirin; Z86.73 Personal history of transient ischemic attack (TIA), and cerebral infarction without residual deficits; Z87.891 Personal history of nicotine dependence
CPT/HCPCS: 36415; 36430; 74177; 78278; 80048; 80053; 82607; 82728; 82746; 83036; 83540; 83550; 83605; 83735; 84132; 84466; 84484; 85014; 85018; 85025; 85027; 85610; 85730; 86850; 86900; 86901; 86923; 88305; 93005; 93306; 96361; 96374; 96376; 99285; A9270; A9560; C9113; G0378; J2001; J2405; J2704; J3480; J7050; J7120; P9016; Q9967

== ENCOUNTER 2019-09-17 10:01 | Outpatient (CLI) | payer MEDICARE, SELFPAY ==
[2019-09-17 10:39] LABS: Hemoglobin 8.3 g/dL (12.0-15.0); Mean Corpuscular HGB Conc 31.9 g/dl (32-36); Mean Corpuscular Hemoglobin 30.9 pg (26-34); Mean Corpuscular Volume 96.7 fl (80-100); Mean Platelet Volume 9.5 fl (7.4-10.4); Platelet Count Result 368 k/mm3 (150-375); Red Blood Count 2.69 M/mm3 (4.2-5.4); Red Cell Distribution Width 17.1 % (11.5-14.5); White Blood Count 8.2 K/mm3 (4.5-10.0)
== END 2019-09-17 10:02 | disposition home or self-care (01) ==
LOC: ANHLAB 10:04
PROVIDERS: PCP Family Medicine Adolescent Medicine; Visit Provider Physician Assistant
DX: D62 Acute posthemorrhagic anemia (principal); K92.2 Gastrointestinal hemorrhage, unspecified
CPT/HCPCS: 36415; 85027

== ENCOUNTER → 2020-04-03 12:12 | Outpatient (CLI) | payer MEDICARE, SELFPAY ==
--- NOTE | ~2020-04-03 | XR_ITS ---
XR chest 2V DATE: 04/03/2020 12:25 INDICATION: Shortness of breath. Ex-smoker. TECHNIQUE: 2 views COMPARISON: 07/13/2018 PA and lateral chest FINDINGS: Mild cardiomegaly. Aortic calcification and unfolding. No hilar or mediastinal mass or kiana opathy is evident. No pulmonary infiltrate or consolidation, pleural effusion or pulmonary vascular c ongestion or pneumothorax. Osteopenia. IMPRESSION: Mild cardiomegaly Aortic atherosclerosis No active pulmonary disease Reviewed, dictated and finalized at location B. ICAL SPECIALTY REP
== END ==
PROVIDERS: PCP Family Medicine Adolescent Medicine; Visit Provider Physician Assistant
DX: R06.02 Shortness of breath (principal); I51.7 Cardiomegaly; I70.0 Atherosclerosis of aorta
CPT/HCPCS: 71046

== ENCOUNTER 2020-05-28 12:26 | Outpatient (CLI) | payer MEDICARE, SELFPAY ==
--- NOTE | ~2020-05-28 | US_ITS ---
EXAMINATION: US carotid duplex BI DATE: 05/28/2020 13:05 INDICATION: Carotid atherosclerosis and stenosis with recent transient ischemic episode. TECHNIQUE: Grayscale, color Doppler, and pulsed Doppler images of the cervical carotid arteries were obtained. The degree of vessel stenosis is placed in one of the following categories: normal, <50%, 5 0-69%, >=70% but less than near-occlusion, near-occlusion, or total occlusion. Note that percent sten osis relative to normal distal artery lumen diameter is indirectly measured from velocity measurement s as described by Celestino, et al. Radiology 2003; 229:340-346. COMPARISON: 07/04/2018 FINDINGS: RIGHT: The right common carotid artery (CCA) peak systolic velocity (PSV) is 66 cm/s. The right internal car otid artery (ICA) PSV is 46 cm/s. The right ICA end-diastolic velocity (EDV) is 10 cm/s. The right IC A/CCA PSV ratio is 0.7. Grayscale and color Doppler images yield an estimate of <50% diameter reducti on from plaque in the ICA. The external carotid artery (ECA) PSV is 59 cm/s. There is antegrade flow in the right vertebral artery. LEFT: The left CCA PSV is 64 cm/s. The left ICA PSV is 63 cm/s. The left ICA EDV is 23 cm/s. The left ICA/C CA PSV ratio is 1.0. Grayscale and color Doppler images yield an estimate of <50% diameter reduction from plaque in the ICA. The ECA PSV is 38 cm/s. There is antegrade flow in the left vertebral artery. IMPRESSION: 1. <50% stenosis in the right internal carotid artery. 2. <50% stenosis in the left internal carotid artery. Reviewed, dictated and finalized at location B. T CLUB MANAGER
== END 2020-05-28 12:27 | disposition home or self-care (01) ==
PROVIDERS: PCP Family Medicine Adolescent Medicine; Visit Provider Family Medicine Adolescent Medicine
DX: Z86.73 Personal history of transient ischemic attack (TIA), and cerebral infarction without residual deficits (principal)
CPT/HCPCS: 93880

== ENCOUNTER 2020-07-06 13:27 | Emergency (ER) | payer MEDICARE, SELFPAY ==
--- NOTE | ~2020-07-06 | CT_ITS ---
EXAMINATION: CT brain wo con EXAM DATE: 07/06/2020 14:09 INDICATION: Aphasia. TECHNIQUE: Spiral CT of the head was performed without contrast. Axial, coronal and sagittal images were reviewed. The dose-length product (DLP) for this examination was 605.33 mGy-cm. The exposure w as tailored according to patient size, and iterative reconstruction (ASIR) was used as additional dos e reduction technique. Comparison is made to prior examination from 07/13/2018. FINDINGS: There are 2 extra-axial partially calcified masses identified, largest overlying the right parietal lobe measuring 3.3 x 1.8 cm (previously 2.9 x 1.6 cm). More subtle poorly calcified meningio ma along the left side of the posterior falx measuring 7 x 11 mm (previously 5 x 9 mm). Densely calci fied meningioma overlying the left frontal lobe measuring 1.5 cm unchanged. There is no acute intraparenchymal hemorrhage. No evidence of intraparenchymal brain mass lesion. N o evidence of acute infarction. Please note that initial head CT has limited sensitivity for small o r acute infarctions. There is mild periventricular and subcortical hypodensity, nonspecific but proba bree related to small vessel ischemic disease. There is mild prominence of the sulci and ventricles related to cerebral atrophy. There is intracranial carotid arteriosclerosis. There are no extra-ax ial collections. There is no mass effect or midline shift. Patient has had bilateral ocular lens mendoza rgery. Soft tissue is unremarkable. The visualized sinuses and mastoid air cells are well aerated. IMPRESSION: 1. No acute intracranial findings. 2. Chronic age related findings. 3. Three extra-axial masses likely meningiomas, with mild interval increase in size of the less dens anu calcified 2. Reviewed, dictated and finalized at location A. IMPRESSION: 1. No acute intracranial findings. 2. Chronic age related findings. 3. Three extra-axial masses likely meningiomas, with mild interval increase in size of the less densely calcified 2.
[2020-07-06 13:29] VITALS: BP 162/92; PULSE 64; RESP 18; TEMP 36.3; O2SAT 95
--- NOTE | 2020-07-06 13:43 | ECG_ITS ---
Measurements Intervals [place] Rate: 59 P: 30 CO: 140 QRS: 56 QRSD: 100 T: 117 QT: 413 QTc: 412 Interpretive Statements SINUS BRADYCARDIA ST-T WAVE ABNORMALITY IN HIGH LATERAL LEADS- CONSIDER ISCHEMIA BASELINE ARTIFACT- I, II, III, AVR, AVL, V1 ABNORMAL ECG Electronically Signed On 07-06-2020 14:31:50 CDT by Cruz Dahl D.O.
[2020-07-06 13:59] LABS: Basophils Percent Auto 0.4 % (0.2-1.2); Eosinophils Absolute Auto 0.2 K/mm3 (0-0.3); Eosinophils Percent Auto 2.4 % (0-4.4); Hematocrit 47.3 % (37.0-47.0); Hemoglobin 15.7 g/dL (12.0-15.0); Immature Granulocyte Absolute 0.02 K/mm3 (0.00-0.031); Immature Granulocyte Percent A 0.3 % (0-0.5); Lymphocytes Absolute Auto 1.54 K/mm3 (0.9-3.2); Lymphocytes Percent Auto 21.6 % (18.3-44.2); Mean Corpuscular HGB Conc 33.2 g/dl (32-36); Mean Corpuscular Hemoglobin 30.3 pg (26-34); Mean Corpuscular Volume 91.1 fl (80-100); Mean Platelet Volume 9.9 fl (7.4-10.4); Monocytes Absolute Auto 0.7 K/mm3 (0.1-0.6); Monocytes Percent Auto 9.7 % (2.6-8.5); Neutrophils Absolute Auto 4.7 K/mm3 (1.3-6.7); Neutrophils Percent Auto 65.6 % (45.5-73.1); Platelet Count Result 234 k/mm3 (150-375); Red Blood Count 5.19 M/mm3 (4.2-5.4); Red Cell Distribution Width 13.9 % (11.5-14.5); White Blood Count 7.1 K/mm3 (4.5-10.0)
--- NOTE | 2020-07-06 14:00 | ED.NEUROSD ---
HPI - Neuro Symptoms/Deficit General Chief Complaint: Neuro Symptoms/Deficit Stated Complaint: I think I had a TIA Time Seen by Provider: 07/06/20 13:41 Source: patient Mode of arrival: ambulatory Limitations: no limitations History of Present Illness HPI Narrative: Patient is an 80-year-old female complaining of think I had a TIA which she describes as expressive aphasia, I cannot say what I wanted to say which lasted for approximately an few minutes and and now resolved, started at around 10 AM this morning.. Patient denies any visual disturbance, focal weakness or numbness or unsteady gait. Patient states that she has a history of TIAs in the past. Denies any CVA. Patient denies any chest pain, shortness of breath, abdominal pain, nausea, vomiting, fever or chills. Patient has no complaints at this time. Related Data Home Medications Medication Instructions Recorded Confirmed amlodipine 5 mg PO DAILY 09/08/19 09/08/19 aspirin 325 mg PO DAILY 09/08/19 09/08/19 dicyclomine 10 mg PO TID PRN 09/08/19 09/08/19 propranolol 160 mg PO DAILY 09/08/19 09/08/19 Allergies Allergy/AdvReac Type Severity Reaction Status Date / Time codeine Allergy Unknown Unknown Verified 07/06/20 13:44 meperidine Allergy Unknown Unknown Verified 07/06/20 13:44 shellfish derived Allergy Unknown Verified 07/06/20 13:44 Review of Systems Review of Systems: All systems reviewed & are unremarkable except as noted in HPI and below Constitutional: Constitutional: Denies body ache(s), Denies chills, Denies excessive sweating, Denies fatigue, Denies fever(s), Denies headache(s), Denies lethargy, Denies malaise, Denies weakness and Denies weight loss Eyes: Eyes: Denies blurry vision, Denies change in vision and Denies loss of vision ENT: Denies dizziness, Denies ear discharge, Denies headache(s), Denies lip swelling, Denies epistaxis, Denies nasal congestion, Denies neck pain, Denies throat swelling and Denies tongue swelling Cardiovascular: Cardiovascular: Denies chest pain, Denies chest pain at rest, Denies chest pain with activity, Denies diaphoresis, Denies rapid heart rate, Denies edema, Denies irregular heart rhythm, Denies lightheadedness, Denies palpitations, Denies dyspnea and Denies dyspnea on exertion Respiratory: Respiratory: Denies chest congestion, Denies cough, Denies hemoptysis, Denies dyspnea and Denies dyspnea on exertion Gastrointestinal: Gastrointestinal: Denies abdominal pain, Denies melena, Denies hematochezia, Denies diarrhea, Denies nausea, Denies vomiting and Denies hematemesis Musculoskeletal: Musculoskeletal: Denies abnormal gait, Denies deformity, Denies joint swelling, Denies limited range of motion, Denies neck pain and Denies numbness Neurologic: Denies abnormal gait, Denies confusion, Denies dizziness, Denies headache(s), Denies focal weakness, Denies loss of vision, Denies numbness, Denies Other visual disturbances, Denies Sensory deficit (Neuro) and Denies weakness Psychiatric: Psychiatric: Denies confusion, Denies depression, Denies auditory hallucinations, Denies homicidal ideation and Denies suicidal ideation Endocrine: Endocrine: Denies cold intolerance, Denies excessive sweating, Denies fatigue, Denies heat intolerance and Denies palpitations Hematologic/Lymphatic: Hematologic/Lymphatic: Denies easy bleeding and Denies easy bruising Allergic/Immunologic: Allergic/Immunologic: Denies lip swelling, Denies throat swelling and Denies tongue swelling PMFSH Past Medical History Medical History Abnormal CT scan, colon (~09/08/19) Acute blood loss anemia Diverticular hemorrhage Erosive gastritis Hemorrhoids History of TIA (transient ischemic attack) HTN (hypertension) (Unknown) Myalgia due to statin Spinal stenosis Surgical History Surgical History History of cataract surgery Family History Family Histo
[2020-07-06 14:08] LABS: INR 0.9; Prothrombin Time 12.7 Seconds (11.1-14.7)
[2020-07-06 14:09] LABS: Partial Thromboplastin Time 29.2 SECONDS (22.3-36.8)
[2020-07-06 14:11] LABS: Anion Gap 10 mmol/L (8-16); Blood Urea Nitrogen 17 mg/dL (7-17); Calcium 10.2 mg/dL (8.4-10.2); Carbon Dioxide 30 mmol/L (22-30); Chloride 97 mmol/L (98-107); Estimated CRCL calculation 45 ml/min; Estimated Glomerular Filt Rate > 60; Glucose 116 mg/dL (65-105); Potassium 4.1 mmol/L (3.4-5.0); Sodium 137 mmol/L (137-145)
[2020-07-06 14:23] LABS: Troponin I < 0.012 ng/mL (0.000-0.034)
== END 2020-07-06 15:33 | disposition home or self-care (01) ==
PROVIDERS: Emergency Provider Emergency Medicine; PCP Family Medicine Adolescent Medicine
DX: G45.9 Transient cerebral ischemic attack, unspecified (principal); I10 Essential (primary) hypertension; Z98.49 Cataract extraction status, unspecified eye; Z87.891 Personal history of nicotine dependence; Z66 Do not resuscitate; Z79.82 Long term (current) use of aspirin; R00.1 Bradycardia, unspecified; R94.31 Abnormal electrocardiogram [ECG] [EKG]
CPT/HCPCS: 36415; 70450; 80048; 84484; 85025; 85610; 85730; 93005; 99284

== ENCOUNTER → 2022-06-09 11:30 | Outpatient (CLI) | payer MEDICARE, SELFPAY ==
--- NOTE | ~2022-06-09 | XR_ITS ---
Right foot Technique: AP and lateral views were obtained. Clinical History: Pain Findings: No acute fracture or dislocation is seen. Hallux valgus is present with mild degenerative c hange at the first MTP joint. Remaining joint spaces are preserved. Soft tissues are unremarkable. Impression: Hallux valgus with mild degenerative change at the first MTP joint. Reviewed, dictated and finalized at location . Impression: Hallux valgus with mild degenerative change at the first MTP joint.
== END ==
PROVIDERS: PCP Family Medicine Adolescent Medicine; Visit Provider Family Medicine Adolescent Medicine
DX: M79.671 Pain in right foot (principal); M21.071 Valgus deformity, not elsewhere classified, right ankle
CPT/HCPCS: 73620

== ENCOUNTER 2024-02-19 06:31 | Observation (INO) | payer MEDICARE, SELFPAY ==
[2024-02-19] VITALS (17 sets, daily range): BP systolic 131–177; BP diastolic 62–105; PULSE 52–63; RESP 14–20; TEMP 36.2–36.8; O2SAT 93–100; BMI 28.2
[2024-02-19 06:52] LABS: Basophils Percent Auto 0.5 % (0.2-1.2); Eosinophils Absolute Auto 0.3 K/mm3 (0-0.3); Eosinophils Percent Auto 3.3 % (0-4.4); Hematocrit 42.6 % (37.0-47.0); Hemoglobin 14.2 g/dL (12.0-15.0); Immature Granulocyte Absolute 0.02 K/mm3 (0.00-0.031); Immature Granulocyte Percent A 0.3 % (0-0.5); Lymphocytes Absolute Auto 0.88 K/mm3 (0.9-3.2); Lymphocytes Percent Auto 11.7 % (18.3-44.2); Mean Corpuscular HGB Conc 33.3 g/dl (32-36); Mean Corpuscular Hemoglobin 30.9 pg (26-34); Mean Corpuscular Volume 92.6 fl (80-100); Mean Platelet Volume 9.6 fl (7.4-10.4); Monocytes Absolute Auto 0.8 K/mm3 (0.1-0.6); Monocytes Percent Auto 11.2 % (2.6-8.5); Neutrophils Absolute Auto 5.5 K/mm3 (1.3-6.7); Platelet Count Result 229 k/mm3 (150-375); Red Cell Distribution Width 14.4 % (11.5-14.5); White Blood Count 7.5 K/mm3 (4.5-10.0)
[2024-02-19 07:02] LABS: Alanine Aminotransferase 14 U/L (6-35); Albumin Level 4.1 g/dL (3.5-5.1); Alkaline Phosphatase 93 U/L (38-126); Anion Gap 6 mmol/L (4-12); Aspartate Amino Transferase 22 U/L (14-36); Bilirubin,Total 0.7 mg/dL (0.2-1.3); Blood Urea Nitrogen 12 mg/dL (7-17); Calcium 9.2 mg/dL (8.4-10.2); Carbon Dioxide 28 mmol/L (22-30); Chloride 103 mmol/L (98-107); Estimated CRCL calculation 45 ml/min; Estimated Glomerular Filt Rate > 60; Glucose 102 mg/dL (65-110); Potassium 4.1 mmol/L (3.4-5.0); Sodium 137 mmol/L (137-145)
[2024-02-19 07:11] LABS: Partial Thromboplastin Time 26.4 Seconds (22.3-36.8); Prothrombin Time 13.2 Seconds (11.1-14.7)
--- NOTE | 2024-02-19 07:35 | ED_ITS ---
HPI - GI Bleed General Chief complaint: GI Bleed Stated complaint: rectal bleed Time Seen by Provider: 02/19/24 07:05 History of Present Illness HPI Narrative: Patient is an 83-year-old female who presents to the ER with bright red rectal bleeding. It began at 5:00 a.m.. She has had this occur x2. She had formed stool, there is blood that came with it and turn to the water a color that was slightly regional maintenance manager than cranberry juice. She then had her 2nd bowel movement of just bright red blood. No lightheadedness or syncope. she still has bloating and cramping in her abdomen. No fevers or chills or sweats. Had similar issues with bleeding several years ago. Patient has known diverticulosis. She is not on a blood thinner. She does take aspirin. Related Data Home Medications Medication Instructions Recorded Confirmed aspirin 81 mg tablet,delayed 162 mg PO DAILY 06/16/21 02/19/24 release (Adult Low Dose Aspirin) amlodipine 10 mg tablet 10 mg PO DAILY 02/19/24 02/19/24 furosemide 20 mg tablet 10 mg PO DAILY 02/19/24 02/19/24 propranolol 160 mg capsule,24 160 mg PO DAILY 02/19/24 02/19/24 hr,extended release Allergies Allergy/AdvReac Type Severity Reaction Status Date / Time codeine Allergy Unknown Unknown Verified 02/19/24 06:40 meperidine Allergy Unknown Unknown Verified 02/19/24 06:40 shellfish derived Allergy Unknown Verified 02/19/24 06:40 atorvastatin AdvReac Intermediate Diarrhea Verified 02/19/24 06:40 simvastatin AdvReac Intermediate Itching Verified 02/19/24 06:40 Review of Systems Review of Systems: All systems reviewed & are unremarkable except as noted in HPI and below Constitutional: Constitutional: Reports no additional constitutional complaints ENT: Reports system reviewed and no additional complaints, except as documented Cardiovascular: Cardiovascular: Reports no additional cardiovascular complaints Respiratory: Respiratory: Reports no additional respiratory complaints Gastrointestinal: Gastrointestinal: Denies abdominal pain, Reports bloating, Denies diarrhea, Denies nausea and Denies vomiting Comments: Rectal bleeding PMFSH Past Medical History Medical History Abnormal colonoscopy 09/[address] scan, colon (~09/08/19) Acute blood loss anemia Diverticular hemorrhage Erosive gastritis Hemorrhoids History of TIA (transient ischemic attack) HTN (hypertension) (Unknown) Myalgia due to statin Spinal stenosis Surgical History Surgical History History of cataract surgery Family History Family History Mother Acute myocardial infarction Cerebrovascular accident Hypertension Heart disease Father Cerebrovascular accident Hypertension Sibling Cerebrovascular accident Carcinoma of colon Colon polyp Heart disease Sibling Colon cancer Breast cancer Malignant neoplasm of prostate Sibling Diabetes mellitus Prostate carcinoma Sibling Renal cancer Social History Social History Social History: Ms. Garcia lives at home with her daughter. 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 She has 1 daughter and 2 sons. She designates her daughter, Susi, as her POA. She would like to be a DNR. Smoking packs per day: 0.5 Smoking cigarettes per day: 10.0 Years smoked: 50 Smoking pack-years: 25.00 Smoking status: Former smoker Tobacco type: cigarettes Second hand tobacco smoke exposure: No Smoking end date: 03/28/18 Alcohol intake: current Drinks per week: 15 Substance use: never Substance use type: does not use Do You Feel Safe in your Home?: Yes Lack of Transportation: No Lack of Food: Never True Current Housing: I Have Housing Concerned About Future Housing: No Difficulty Paying Gas/Electric Bills: No Difficulty Paying for Meds: No Currently Unemployed: No Education: Associate Degree Difficulty w/ Childcare or Family Care: No Living arrangements: with family Occupation/Education: retired Gender identity (if verbalized by the patient): Female Sexual Orientation (if Verbalized by the Patient): Straight or Heterosexual Spiritual care concerns: No Agree to blood products: Yes Exam Narrative: GENERAL: Well-appearing, well-nourished, and in no acute distress. HEAD: Normocephalic, atraumatic. ENT: Mucous membranes moist. CHEST: Clear to auscultation. No respiratory distress. HEART: Regular rate and rhythm. Normal peripheral pulses. ABDOMEN: Soft, nontender, nondistended. nonbleeding external hemorrhoid. Di gital rectal exam with evidence of bright red blood. EXTREMITIES: Normal range of motion. No edema. SKIN: Warm, dry, no rash. NEURO: Alert and oriented x3. PSYCH: Normal mood and affect. Course Course Emergency Course: Discussed with GI. Admit for observation and q.6 hour hemoglobins. Clear liquid diet. Vital Signs Vital signs: Vital Signs Temperature 98.1 F 02/19/24 06:35 Pulse Rate 57 L 02/19/24 06:35 Respiratory Rate 20 02/19/24 06:35 Blood Pressure 154/87 H 02/19/24 06:35 Pulse Oximetry 99 02/19/24 06:35 Oxygen Delivery Room Air 02/19/24 06:35 Temperature 97.2 F L 02/19/24 10:18 Pulse Rate 59 L 02/19/24 10:18 Respiratory Rate 16 02/19/24 10:18 Blood Pressure 150/70 H 02/19/24 10:18 Pulse Oximetry 100 02/19/24 10:18 Oxygen Delivery Room Air 02/19/24 10:19 MDM - GI Bleed Lab Data 02/19/24 13:00 02/19/24 06:44 Labs: Lab Results 02/19/24 Range/Units 06:44 WBC 7.5 (4.5-10.0) K/mm3 RBC 4.60 (4.2-5.4) M/mm3 Hgb 14.2 (12.0-15.0) g/dL Hct 42.6 (37.0-47.0) % MCV 92.6 (80-100) fl MCH 30.9 (26-34) pg MCHC 33.3 (32-36) g/dl RDW 14.4 (11.5-14.5) % Plt Count 229 (150-375) k/mm3 MPV 9.6 (7.4-10.4) fl Immature Gran % (Auto) 0.3 (0-0.5) % Neut % (Auto) 73.0 (45.5-73.1) % Lymph % (Auto) 11.7 L (18.3-44.2) % [place] % (Auto) 11.2 H (2.6-8.5) % Eos % (Auto) 3.3 (0-4.4) % Baso % (Auto) 0.5 (0.2-1.2) % Lymph # (Auto) 0.88 L (0.9-3.2) K/mm3 [place] # (Auto) 0.8 H (0.1-0.6) K/mm3 Eos # (Auto) 0.3 (0-0.3) K/mm3 Baso # (Auto) 0.0 (0.0-0.1) K/mm3 Abs Immat Gran (auto) 0.02 (0.00-0.031) K/mm3 Absolute Neuts (auto) 5.5 (1.3-6.7) K/mm3 Absolute Nucleated RBC 0.000 (0.0-0.012) K/mm3 Nucleated RBC % 0.0 (0.0-0.2) % PT 13.2 (11.1-14.7) Seconds INR 1.0 APTT 26.4 (22.3-36.8) Seconds Sodium 137 (137-145) mmol/L Potassium 4.1 (3.4-5.0) mmol/L Chloride 103 (98-107) mmol/L Carbon Dioxide 28 (22-30) mmol/L Anion Gap 6 (4-12) mmol/L BUN 12 D (7-17) mg/dL Creatinine 0.70 (0.7-1.0) mg/dL Estim Creat Clear Calc 45 ml/min Estimated GFR > 60 (59 - ) Glucose 102 (65-110) mg/dL Calcium 9.2 (8.4-10.2) mg/dL Total Bilirubin 0.7 (0.2-1.3) mg/dL AST 22 (14-36) U/L ALT 14 (6-35) U/L Alkaline Phosphatase 93 (38-126) U/L Total Protein 7.0 (6.3-8.2) g/dL Albumin 4.1 (3.5-5.1) g/dL Blood Type AB Positive Antibody Screen Negative Discharge Plan Discharge Clinical Impression: Lower GI bleeding Patient Disposition: Still a Patient Condition: Stable
--- NOTE | 2024-02-19 09:31 | PC.NURSE ---
No stools or rectal bleeding since arrival.
--- NOTE | 2024-02-19 09:48 | ADMGEN ---
This patient, Caro Garcia, was admitted to Medical Room 245-. Patient/family oriented to hospital policies and general routines including ID bracelet, bed and alarms, visiting hours, pain management, procedures, bathroom and other care routines, personal items, smoking policy, room service/diet, and visiting hours. Information on how to activate the Rapid Response Team has been discussed. Patient/Family are encouraged to report perceived risks to care and to ask questions if they do not understand what they are told or what they should do.
--- NOTE | 2024-02-19 10:51 | WPDGICN ---
Assessment and Plan Assessment and plan (1) Lower GI bleeding: Code(s): K92.2 - Gastrointestinal hemorrhage, unspecified Status: Acute Assessment and Plan: The patient's hemodynamic status and hemoglobin are stable and clinically with her seems to be originating in lower sources such as hemorrhoids. No emergent or semi elective colonoscopy is indicated at this point. She was admitted for monitoring and observation and if everything continues to be stable she will be discharged tomorrow morning. If the same sort of episodes continue will consult surgery for consideration of ano rectal evaluation and possible hemorrhoidal treatment. GI Consult Note Consult date/time: 02/19/24 10:51 Reason for consult: Lower GI bleeding HPI: Caro Garcia is a 83 year old female who presents to the ER with bright red rectal bleeding. It began at 5:00 a.m.. She has had this occur x2. The bleeding is described as bright red, there were no clots and no associated lightheadedness or near syncope. A colonoscopy done approximately 2 years ago showed diverticulosis but no neoplasms or AVMs. Some small polyps removed. The patient feels well and has had no further episodes of GI bleeding since transferred to the floor. Review of Systems Review of Systems: All systems reviewed & are unremarkable except as noted in HPI and below PMFSH Past Medical History Medical History Abnormal colonoscopy 09/[address] scan, colon (~09/08/19) Acute blood loss anemia Diverticular hemorrhage Erosive gastritis Hemorrhoids History of TIA (transient ischemic attack) HTN (hypertension) (Unknown) Myalgia due to statin Spinal stenosis Surgical History Surgical History History of cataract surgery Family History Family History Mother Acute myocardial infarction Cerebrovascular accident Hypertension Heart disease Father Cerebrovascular accident Hypertension Sibling Cerebrovascular accident Carcinoma of colon Colon polyp Heart disease Sibling Colon cancer Breast cancer Malignant neoplasm of prostate Sibling Diabetes mellitus Prostate carcinoma Sibling Renal cancer Social History Social History Social History: Ms. Garcia lives at home with her daughter. 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 She has 1 daughter and 2 sons. She designates her daughter, Susi, as her POA. She would like to be a DNR. Smoking packs per day: 0.5 Smoking cigarettes per day: 10.0 Years smoked: 50 Smoking pack-years: 25.00 Smoking status: Former smoker Tobacco type: cigarettes Second hand tobacco smoke exposure: No Smoking end date: 03/28/18 Alcohol intake: current Drinks per week: 15 Substance use: never Substance use type: does not use Do You Feel Safe in your Home?: Yes Lack of Transportation: No Lack of Food: Never True Current Housing: I Have Housing Concerned About Future Housing: No Difficulty Paying Gas/Electric Bills: No Difficulty Paying for Meds: No Currently Unemployed: No Education: Associate Degree Difficulty w/ Childcare or Family Care: No Living arrangements: with family Occupation/Education: retired Gender identity (if verbalized by the patient): Female Sexual Orientation (if Verbalized by the Patient): Straight or Heterosexual Spiritual care concerns: No Agree to blood products: Yes Meds Home Medications and Allergies Home Medications Medication Instructions Recorded Confirmed Type aspirin 81 mg tablet,delayed 162 mg PO DAILY 06/16/21 02/19/24 History release (Adult Low Dose Aspirin) potassium chloride 10 mEq 10 meq PO DAILY #90 caps 09/16/23 02/19/24 Rx capsule,extended release allopurinol 300 mg tablet 300 mg PO DAILY #90 tabs 10/11/23 02/19/24 Rx amlodipine 10 mg tablet 10 mg PO DAILY 02/19/24 02/19/24 History furosemide 20 mg tablet 10 mg PO DAILY 02/19/24 02/19/24 History propranolol 160 mg capsule,24 160 mg PO DAILY 02/19/24 02/19/24 History hr,extended release Allergies Allergy/AdvReac Type Severity Reaction Status Date / Time codeine Allergy Unknown Unknown Verified 02/19/24 06:40 meperidine Allergy Unknown Unknown Verified 02/19/24 06:40 shellfish derived Allergy Unknown Verified 02/19/24 06:40 atorvastatin AdvReac Intermediate Diarrhea Verified 02/19/24 06:40 simvastatin AdvReac Intermediate Itching Verified 02/19/24 06:40 Vital Signs Vital Signs - 24 hr 02/19/24 06:35 02/19/24 07:45 02/19/24 07:46 Temperature 98.1 F Pulse Rate 57 L 57 L 58 L Respiratory Rate 20 Blood Pressure 154/87 H 144/83 H 152/96 H Pulse Oximetry 99 Oxygen Delivery Room Air 02/19/24 07:47 02/19/24 06:46 02/19/24 07:00 Temperature Pulse Rate 61 59 L 56 L Respiratory Rate 17 17 Blood Pressure 177/105 H Pulse Oximetry 97 96 Oxygen Delivery 02/19/24 07:02 02/19/24 07:15 02/19/24 07:31 Temperature Pulse Rate 56 L 59 L 54 L Respiratory Rate 18 16 20 Blood Pressure 146/98 H Pulse Oximetry 96 99 95 Oxygen Delivery 02/19/24 07:53 02/19/24 08:00 02/19/24 08:02 Temperature Pulse Rate 56 L 58 L 57 L Respiratory Rate 17 15 18 Blood Pressure 131/71 Pulse Oximetry 93 94 96 Oxygen Delivery 02/19/24 09:34 02/19/24 10:18 02/19/24 10:19 Temperature 97.2 F L Pulse Rate 52 L 59 L Respiratory Rate 18 16 Blood Pressure 172/91 H 150/70 H Pulse Oximetry 96 100 Oxygen Delivery Room Air Exam Narrative: GENERAL: Well-appearing, well-nourished, and in no acute distress. HEAD: Normocephalic, atraumatic. ENT: Mucous membranes moist. CHEST: Clear to auscultation. No respiratory distress. HEART: Regular rate and rhythm. Normal peripheral pulses. ABDOMEN: Soft, nontender, nondistended. nonbleeding external hemorrhoid. Digital rectal exam with evidence of bright red blood. EXTREMITIES: Normal range of motion. No edema. SKIN: Warm, dry, no rash. NEURO: Alert and oriented x3. PSYCH: Normal mood and affect. Results Labs 02/19/24 06:44 02/19/24 06:44 Labs: Short CBC 02/19/24 Range/Units 06:44 WBC 7.5 (4.5-10.0) K/mm3 Hgb 14.2 (12.0-15.0) g/dL Hct 42.6 (37.0-47.0) % Plt Count 229 (150-375) k/mm3 BMP 02/19/24 06:44 Sodium 137 Potassium 4.1 Chloride 103 Carbon Dioxide 28 BUN 12 D Creatinine 0.70 Glucose 102 Calcium 9.2 Liver Function 11/24/24 Range/Units 06:44 Total Bilirubin 0.7 (0.2-1.3) mg/dL AST 22 (14-36) U/L ALT 14 (6-35) U/L Alkaline Phosphatase 93 (38-126) U/L Albumin 4.1 (3.5-5.1) g/dL
--- NOTE | 2024-02-19 12:01 | P.HP_ITS ---
H&P: HPI History of Present Illness Date/Time: 02/19/24 12:01 Chief Complaint: Hematochezia Narrative: Patient is an 83-year-old female who presents to the ER with bright red rectal bleeding. It began at 5:00 a.m.. She has had this occur x2. She had formed stool, there is blood that came with it and turn to the water a color that was slightly security clerk than cranberry juice. She then had her 2nd bowel movement of just bright red blood. No lightheadedness or syncope. she still has bloating and cramping in her abdomen. No fevers or chills or sweats. Had similar issues with bleeding several years ago. Patient has known diverticulosis. She is not on a blood thinner. She does take aspirin. Upon evaluating patient in floor she reports colonoscopy was done approximately 2 years ago showed diverticulosis but no neoplasms or AVMs and some small polyps removed. Her HgB is currently stable. Patient denies any chest pain, shortness a breath or palpitation. We will trend the hemoglobin and if no further episodes of the hematochezia, patient will likely be discharged tomorrow Review of Systems Review of Systems: All systems reviewed & are unremarkable except as noted in HPI and below Constitutional: Constitutional: Reports no additional constitutional complain ts ENT: Reports system reviewed and no additional complaints, except as documented Cardiovascular: Cardiovascular: Reports no additional cardiovascular complaints Respiratory: Respiratory: Reports no additional respiratory complaints Gastrointestinal: Gastrointestinal: Denies abdominal pain, Reports bloating, Denies diarrhea, Denies nausea and Denies vomiting [facility] Past Medical History Medical History Abnormal colonoscopy 09/[address] scan, colon (~09/08/19) Acute blood loss anemia Diverticular hemorrhage Erosive gastritis Hemorrhoids History of TIA (transient ischemic attack) HTN (hypertension) (Unknown) Myalgia due to statin Spinal stenosis Surgical History Surgical History History of cataract surgery Family History Family History Mother Acute myocardial infarction Cerebrovascular accident Hypertension Heart disease Father Cerebrovascular accident Hypertension Sibling Cerebrovascular accident Carcinoma of colon Colon polyp Heart disease Sibling Colon cancer Breast cancer Malignant neoplasm of prostate Sibling Diabetes mellitus Prostate carcinoma Sibling Renal cancer Social History Social History Social History: Ms. Garcia lives at home with her daughter. 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 She has 1 daughter and 2 sons. She designates her daughter, Susi, as her POA. She would like to be a DNR. Smoking packs per day: 0.5 Smoking cigarettes per day: 10.0 Years smoked: 50 Smoking pack-years: 25.00 Smoking status: Former smoker Tobacco type: cigarettes Second hand tobacco smoke exposure: No Smoking end date: 03/28/18 Alcohol intake: current Drinks per week: 15 Substance use: never Substance use type: does not use Do You Feel Safe in your Home?: Yes Lack of Transportation: No Lack of Food: Never True Current Housing: I Have Housing Concerned About Future Housing: No Difficulty Paying Gas/Electric Bills: No Difficulty Paying for Meds: No Currently Unemployed: No Education: Associate Degree Difficulty w/ Childcare or Family Care: No Living arrangements: with family Occupation/Education: retired Gender identity (if verbalized by the patient): Female Sexual Orientation (if Verbalized by the Patient): Straight or Heterosexual Spiritual care concerns: No Agree to blood products: Yes Meds Home Medications and Allergies Home Medications Medication Instructions Recorded Confirmed Type aspirin 81 mg tablet,delayed 162 mg PO DAILY 06/16/21 02/19/24 History release (Adult Low Dose Aspirin) potassium chloride 10 mEq 10 meq PO DAILY #90 caps 09/16/23 02/19/24 Rx capsule,extended release allopurinol 300 mg tablet 300 mg PO DAILY #90 tabs 10/11/23 02/19/24 Rx amlodipine 10 mg tablet 10 mg PO DAILY 02/19/24 02/19/24 History furosemide 20 mg tablet 10 mg PO DAILY 02/19/24 02/19/24 History propranolol 160 mg capsule,24 160 mg PO DAILY 02/19/24 02/19/24 History hr,extended release Allergies Allergy/AdvReac Type Severity Reaction Status Date / Time codeine Allergy Unknown Unknown Verified 02/19/24 06:40 meperidine Allergy Unknown Unknown Verified 02/19/24 06:40 shellfish derived Allergy Unknown Verified 02/19/24 06:40 atorvastatin AdvReac Intermediate Diarrhea Verified 02/19/24 06:40 simvastatin AdvReac Intermediate Itching Verified 02/19/24 06:40 Vital Signs Vital Signs - 24 hr 02/19/24 06:35 02/19/24 07:45 02/19/24 07:46 Temperature 98.1 F Pulse Rate 57 L 57 L 58 L Respiratory Rate 20 Blood Pressure 154/87 H 144/83 H 152/96 H Pulse Oximetry 99 Oxygen Delivery Room Air 02/19/24 07:47 02/19/24 06:46 02/19/24 07:00 Temperature Pulse Rate 61 59 L 56 L Respiratory Rate 17 17 Blood Pressure 177/105 H Pulse Oximetry 97 96 Oxygen Delivery 02/19/24 07:02 02/19/24 07:15 02/19/24 07:31 Temperature Pulse Rate 56 L 59 L 54 L Respiratory Rate 18 16 20 Blood Pressure 146/98 H Pulse Oximetry 96 99 95 Oxygen Delivery 02/19/24 07:53 02/19/24 08:00 02/19/24 08:02 Temperature Pulse Rate 56 L 58 L 57 L Respiratory Rate 17 15 18 Blood Pressure 131/71 Pulse Oximetry 93 94 96 Oxygen Delivery 02/19/24 09:34 02/19/24 10:18 02/19/24 10:19 Temperature 97.2 F L Pulse Rate 52 L 59 L Respiratory Rate 18 16 Blood Pressure 172/91 H 150/70 H Pulse Oximetry 96 100 Oxygen Delivery Room Air Exam Narrative: GENERAL: Well-appearing, well-nourished, and in no acute distress. HEAD: Normocephalic, atraumatic. ENT: Mucous membranes moist. CHEST: Clear to auscultation. No respiratory distress. HEART: Regular rate and rhythm. Normal peripheral pulses. ABDOMEN: Soft, nontender, nondistended. nonbleeding external hemorrhoid. Digital rectal exam with evidence of bright red blood. EXTREMITIES: Normal range of motion. No edema. SKIN: Warm, dry, no rash. NEURO: Alert and oriented x3. PSYCH: Normal mood and affect. H&P: Results Labs Labs: Short CBC 02/19/24 Range/Units 06:44 WBC 7.5 (4.5-10.0) K/mm3 Hgb 14.2 (12.0-15.0) g/dL Hct 42.6 (37.0-47.0) % Plt Count 229 (150-375) k/mm3 BMP 02/19/24 06:44 Sodium 137 Potassium 4.1 Chloride 103 Carbon Dioxide 28 BUN 12 D Creatinine 0.70 Glucose 102 Calcium 9.2 Liver Function 02/19/24 Range/Units 06:44 Total Bilirubin 0.7 (0.2-1.3) mg/dL AST 22 (14-36) U/L ALT 14 (6-35) U/L Alkaline Phosphatase 93 (38-126) U/L Albumin 4.1 (3.5-5.1) g/dL Assessment and Plan Assessment and plan (1) Lower GI bleeding: Code(s): K92.2 - Gastrointestinal hemorrhage, unspecified Status: Acute Assessment and Plan: The patient's hemodynamic status and hemoglobin are stable and clinically with her seems to be originating in lower sources such as hemo Plan GI Bleed: Diverticulosis versus angiodysplasia versus AVM Hemoglobin trend shows no significant abnormality Currently we discontinue q.6 hours blood draw Will monitor for any another episode of hematochezia If necessary we will continue H&H every 6 hours Colonoscopy was performed 2 years ago due to hematochezia. Reports removal of polyps. GA is followed Appreciate recs. Hypertension Continue home medication Hospitalist MIPS Advance Care Plan I have confirmed that the patient's Advanced Care Plan is present, code status is documented, or surrogate decision maker is listed in patient medical record.: Yes Medication Reconciliation I have utilized all available resources to obtain, update and review the patients current medications (includes all prescriptions, OTC, herbals, cannabis, and nutritional supplements).: Yes
[2024-02-19 13:05] LABS: Hematocrit 45.1 % (37.0-47.0)
[2024-02-20 06:00] VITALS: BP 134/64; PULSE 73; RESP 18; TEMP 36.5; O2SAT 96
[2024-02-20 06:07] LABS: Hematocrit 37.6 % (37.0-47.0); Hemoglobin 12.5 g/dL (12.0-15.0); Mean Corpuscular HGB Conc 33.2 g/dl (32-36); Mean Corpuscular Volume 93.3 fl (80-100); Mean Platelet Volume 10.1 fl (7.4-10.4); Platelet Count Result 217 k/mm3 (150-375); Red Blood Count 4.03 M/mm3 (4.2-5.4); Red Cell Distribution Width 14.6 % (11.5-14.5); White Blood Count 5.4 K/mm3 (4.5-10.0)
[2024-02-20 06:20] LABS: Alanine Aminotransferase 11 U/L (6-35); Albumin Level 3.5 g/dL (3.5-5.1); Alkaline Phosphatase 74 U/L (38-126); Anion Gap 5 mmol/L (4-12); Aspartate Amino Transferase 20 U/L (14-36); Bilirubin,Total 0.7 mg/dL (0.2-1.3); Blood Urea Nitrogen 13 mg/dL (7-17); Carbon Dioxide 28 mmol/L (22-30); Chloride 105 mmol/L (98-107); Estimated CRCL calculation 52 ml/min; Estimated Glomerular Filt Rate > 60; Glucose 104 mg/dL (65-110); Potassium 3.6 mmol/L (3.4-5.0); Sodium 138 mmol/L (137-145)
[2024-02-20 07:56] VITALS: BP 126/56; PULSE 65; RESP 18; TEMP 36.3; O2SAT 99
[2024-02-20] MEDS: amLODIPine BESYLATE 10 MG TABLET PO (08:00)
[2024-02-20] MEDS: allopurinoL 300 MG TABLET PO (08:00)
--- NOTE | 2024-02-20 08:11 | PHAR ---
HOME MED: PROPRANOLOL ER 160 MG CAPSULES, TAKE 1 CAPSULE BY MOUTH ONCE DAILY, VERIFIED IN PHARMACY 02/19 @ 1055
[2024-02-20] MEDS: PROPRANOLOL 160 MG 160 EACH PO (09:08)
[2024-02-20 13:36] LABS: Hematocrit 41.3 % (37.0-47.0); Hemoglobin 13.5 g/dL (12.0-15.0)
--- NOTE | 2024-02-20 13:56 | PM.DS ---
DS: Admitting Diagnosis Discharge Date 02/20/2024 Admitting Diagnosis Hematochezia DS: Discharge Diagnosis Discharge Diagnosis (1) Lower GI bleeding: Code(s): K92.2 - Gastrointestinal hemorrhage, unspecified Status: Acute Assessment and Plan: The patient's hemodynamic status and hemoglobin are stable and clinically with her seems to be originating in lower sources such as hemo Plan GI Bleed: Diverticulosis versus angiodysplasia versus AVM Hemoglobin trend shows no significant abnormality Currently we discontinue q.6 hours blood draw Will monitor for any another episode of hematochezia If necessary we will continue H&H every 6 hours Colonoscopy was performed 2 years ago due to hematochezia. Reports removal of polyps. GA is followed Appreciate recs. Hypertension Continue home medication DS: Summary Hospital Course Hospital Course: Patient is an 83-year-old female who presents to the ER with bright red rectal bleeding. It began at 5:00 a.m.. She has had this occur x2. She had formed stool, there is blood that came with it and turn to the water a color that was slightly internet security specialist than cranberry juice. She then had her 2nd bowel movement of just bright red blood. No lightheadedness or syncope. she still has bloating and cramping in her abdomen. No fevers or chills or sweats. Had similar issues with bleeding several years ago. Patient has known diverticulosis. She is not on a blood thinner. She does take aspirin. Upon evaluating patient in floor she reports colonoscopy was done approximately 2 years ago showed diverticulosis but no neoplasms or AVMs and some small polyps removed. Her HgB is currently stable. Patient denies any chest pain, shortness a breath or palpitation. During the hospitalization patient never had any other episodes of bloody stool. Her hemoglobin trend shows no significant abnormalities. Advised to follow-up with GI within a week upon discharge. Advised to visit ED in the event of other multiple episodes of bloody stools. Also monitor for any palpitation, dizziness, or loss of consciousness. Currently holding aspirin and advised to follow-up with the PCP in order to continue. Status at Discharge Cognitive/behavioral status at discharge: Stable Time Spent with Patient Time attestation: Total time spent providing and/or coordinating discharge services: 45 minutes Exam Narrative: GENERAL: Well-appearing, well-nourished, and in no acute distress. HEAD: Normocephalic, atraumatic. ENT: Mucous membranes moist. CHEST: Clear to auscultation. No respiratory distress. HEART: Regular rate and rhythm. Normal peripheral pulses. ABDOMEN: Soft, nontender, nondistended. nonbleeding external hemorrhoid. Digital rectal exam with evidence of bright red blood. EXTREMITIES: Normal range of motion. No edema. SKIN: Warm, dry, no rash. NEURO: Alert and oriented x3. PSYCH: Normal mood and affect. DS: Data Data Completed and Pending Labs on day of discharge: Labs from last 24 hours 02/20/24 02/20/24 13:13 04:52 WBC 5.4 RBC 4.03 L Hgb 13.5 12.5 Hct 41.3 37.6 MCV 93.3 MCH 31.0 MCHC 33.2 RDW 14.6 H Plt Count 217 MPV 10.1 Sodium 138 Potassium 3.6 Chloride 105 Carbon Dioxide 28 Anion Gap 5 BUN 13 Creatinine 0.60 L Estim Creat Clear Calc 52 Estimated GFR > 60 Glucose 104 Calcium 9.0 Total Bilirubin 0.7 AST 20 ALT 11 Alkaline Phosphatase 74 Total Protein 6.0 L Albumin 3.5 Discharge Plan Discharge Attending physician on discharge: Lj Harris Discharging Clinician: Lj Harris Anticipated Discharge Date/Time: 02/20/24 13:53 Patient Disposition: Home, Self-Care Activity: as tolerated Diet: regular Discharge Instructions: Please follow-up with the PCP for CBC within a week upon discharge Need to monitor her hemoglobin In the event of tachycardia, dizziness, loss of consciousness please visit ED Monitor for another episode of bloody stool Patient Instructions: Antibiotic Form Stand Alone Forms: General Discharge Information Follow-up/Referrals: Cliff Temple MD [Physician] - 1 Week Liang Giang MD [Primary Care Provider] - 1 Week (Holding aspirin due to a recent episode of hematochezia. Please evaluate the patient and continue aspirin if needed) Discharge Medications: Continued allopurinol 300 mg tablet 300 mg PO DAILY Qty: 90 3RF propranolol 160 mg capsule,extended release 24 hr 160 mg PO DAILY amlodipine 10 mg tablet 10 mg PO DAILY furosemide 20 mg tablet 10 mg PO DAILY potassium chloride 10 mEq capsule, extended release 10 meq PO DAILY Qty: 90 1RF Held aspirin [Adult Low Dose Aspirin] 81 mg tablet,delayed release (DR/EC) 162 mg PO DAILY Hold Instructions: Resume on 03/05/24. Please discuss with PCP in regards to continuation of aspirin Date of admission: 02/19/24 08:53 Primary Care Provider: Liang Giang Admitting Provider: Lj Harris Attending physician on admission: Lj Harris Condition: Stable
== END 2024-02-20 14:04 | disposition home or self-care (01) ==
LOC: ANHED 07:24 → ANH2MED 09:22
PROVIDERS: Student in an Organized Health Care Education/Training Program; Admitting Provider General Practice; Emergency Provider Emergency Medicine; PCP Family Medicine Adolescent Medicine; Visit Provider General Practice
DX: K62.5 Hemorrhage of anus and rectum (principal); K64.4 Residual hemorrhoidal skin tags; K57.90 Diverticulosis of intestine, part unspecified, without perforation or abscess without bleeding; I10 Essential (primary) hypertension; M48.00 Spinal stenosis, site unspecified; Z66 Do not resuscitate; Z79.82 Long term (current) use of aspirin; Z79.899 Other long term (current) drug therapy; Z86.0100 Personal history of colon polyps, unspecified; Z86.73 Personal history of transient ischemic attack (TIA), and cerebral infarction without residual deficits; Z87.891 Personal history of nicotine dependence
CPT/HCPCS: 36415; 80053; 85014; 85018; 85025; 85027; 85610; 85730; 86850; 86900; 86901; 99285; A9270; G0378